=== PATIENT | female | born 1935 | race Caucasian/White ===

== ENCOUNTER 2017-09-24 14:01 | Inpatient (IN) | payer MEDICARE, MEDICAID ==
[~2017-09-24] VITALS: Ht 149.9 cm; Wt 80.0 kg
[~2017-09-24 14:01] MED LIST: HYDR25TA PO; NAPR500T7 PO; SIMV20TA6 PO
[2017-09-24] MEDS ORDERED: DILTIAZEM HCL 125 MG in DEXT 5% WATER 100 ML IV ONE (16:00)
[2017-09-24] MEDS ORDERED: DILTIAZEM HCL 5MG/ML 5ML VIAL IV ONE (16:00)
[2017-09-24 16:28] LABS: BASOPHILS % 0.6 % (0.0-2.0); EOSINOPHILS % 0.9 % (0.0-5.0); HEMATOCRIT. 37.6 % (36.0-48.0); HEMOGLOBIN. 12.6 g/dL (12.0-16.0); LYMPHOCYTES % 28.3 % (20.0-50.0); MEAN CORPUSCULAR VOLUME 89.6 fL (81.0-99.0); MONOCYTES % 9.7 % (2.0-8.0); NEUTROPHILS % 60.5 % (40.0-76.0); PLATELET 176 x1000/uL (130-400); RED BLOOD CELL COUNT 4.19 mill/uL (4.2-5.4); RED CELL DISTRIBUTION WIDTH 14.7 % (11.6-14.6)
[2017-09-24 16:30] LABS: INR 1.3; PARTIAL THROMBOPLASTIN TIME 25.5 sec (23.4-31.0)
[2017-09-24] MEDS ORDERED: DILTIAZEM HCL 125 MG in SODIUM CHLORIDE 0.9% 100 ML IV NR (16:30)
[2017-09-24 16:32] LABS: CHLORIDE 100 mEq/L (98-107)
[2017-09-25] VITALS (88 sets, daily range): BP systolic 53–150; BP diastolic 32–105
[2017-09-25] MEDS: IPRATROPIUM/ALBUTEROL 0.5-3(2.5)MG/3ML NEB HHN SCH ×2 (00:02→20:00)
[2017-09-25] MEDS ORDERED: ETOMIDATE 2MG/ML 10ML VIAL IV ONE (06:00)
[2017-09-25] MEDS ORDERED: SUCCINYLCHOLINE CHLORIDE 200MG/10ML VIAL IV ONE (06:00)
[2017-09-25] MEDS ORDERED: VECURONIUM BROMIDE 10 MG/VIAL IV ONE (06:00)
[2017-09-25] MEDS ORDERED: MIDAZOLAM HCL 2 MG/2 ML VIAL ONE (06:08)
[2017-09-25] MEDS ORDERED: AMIODARONE HCL 900 MG in DEXT 5% WATER 482 ML IV STA (06:16)
[2017-09-25] MEDS ORDERED: AMIODARONE HCL IV SCH (06:30)
[2017-09-25] MEDS ORDERED: AMIODARONE HCL 50MG/ML 3ML VIAL IV ONE (06:30)
[2017-09-25] MEDS ORDERED: MIDAZOLAM HCL 2 MG/2 ML VIAL IV ONE (06:30)
[2017-09-25] MEDS ORDERED: WATER IV SCH (06:30)
[2017-09-25] MEDS ORDERED: DEXTROSE 5% IV SCH (06:30)
[2017-09-25] MEDS ORDERED: AMIODARONE HCL 900 MG in DEXT 5% WATER 500 ML IV PRN (06:40)
[2017-09-25] MEDS: PROPOFOL 10MG/ML 100ML 100 ML IV PRN ×2 (07:49→14:05)
[2017-09-25 08:02] LABS: BG BASE EXCESS -10.2 mmol/L (-2.0-2.0); BG CARBOXYHEMOGLOBIN 0.3 % (0.5-1.5); BG DEOXYHEMOGLOBIN 0.8 % (0.0-5.0); BG FRACTION INSPIRED OXYGEN 100; BG HCO3 ACT 14.7 mmol/L (22.0-26.0); BG METHEMOGLOBIN 0.4 % (0.0-1.5); BG OXYGEN SATURATION 99.2 % (92.0-98.5); BG OXYHEMOGLOBIN 98.5 % (94.0-97.0); BG PH 7.309 (7.350-7.450); BG PO2 231.2 mmHg (75.0-100.0); BG SAMPLE SITE RIGHT BRACHIAL; BG TIDAL VOLUME(mL) 500 mL; BG TOTAL HEMOGLOBIN 13.3 g/dL (12.0-18.0); BG VENT MODE VENT - A/C; BG VENT RATE 12 set
[2017-09-25] MEDS ORDERED: LIDOCAINE HCL/PF 1% 10 MG/ML 5ML VIAL ONE (08:04)
[2017-09-25] MEDS ORDERED: FUROSEMIDE 40MG/4ML VIAL IVP SCH (08:45)
[2017-09-25] MEDS ORDERED: AMIODARONE HCL 100 MG in DEXT 5% WATER 100 ML IV SCH (09:00)
[2017-09-25] MEDS ORDERED: ENOXAPARIN 30MG/0.3ML SYR SUBCUT SCH (09:00)
[2017-09-25] MEDS ORDERED: ASPIRIN 81MG EC TABLET PO SCH (09:00)
[2017-09-25] MEDS ORDERED: SODIUM BICARBONATE 8.4% 1 MEQ/ML 50ML SYR IV SCH (09:15)
[2017-09-25] MEDS: AMIODARONE HCL 900 MG in DEXT 5% WATER 482 ML IV SCH (10:13)
[2017-09-25 10:25] LABS: CLARITY URINE TURBID (CLEAR); COLOR URINE YELLOW (YELLOW); KETONES URINE NEGATIVE (NEGATIVE); LEUKOCYTE ESTERASE URINE 2+ (NEGATIVE); NITRITE URINE POSITIVE (NEGATIVE); OCCULT BLOOD URINE 1+ (NEGATIVE); PROTEIN URINE 2+ (NEGATIVE); SPECIFIC GRAVITY URINE 1.016 (1.005-1.030); UROBILINOGEN URINE 0.2 E.U./dL (0.2-1.0)
[2017-09-25] MEDS ORDERED: PANTOPRAZOLE SODIUM 40 MG/VIAL IV NR (10:30)
[2017-09-25] MEDS: PHENYLEPHRINE 20 MG in DEXT 5% WATER 248 ML IV PRN ×2 (10:48→14:36)
[2017-09-25 12:00] LABS: BASOPHILS % 0.2 % (0.0-2.0); HEMOGLOBIN. 12.6 g/dL (12.0-16.0); LYMPHOCYTES % 10.8 % (20.0-50.0); MEAN CORPUSCULAR HEMOGLOBIN 29.5 pg (28.0-32.0); MEAN CORPUSCULAR VOLUME 88.8 fL (81.0-99.0); MEAN PLATELET VOLUME 11.1 fl (7.4-10.4); PLATELET 171 x1000/uL (130-400); RED BLOOD CELL COUNT 4.28 mill/uL (4.2-5.4); RED CELL DISTRIBUTION WIDTH 14.9 % (11.6-14.6)
[2017-09-25] MEDS ORDERED: IPRATROPIUM/ALBUTEROL 0.5-3(2.5)MG/3ML NEB HHN PRN (12:00)
[2017-09-25 12:40] LABS: CREATINE KINASE MB FRACTION 2.1 ng/mL (0.5-3.6); PHOSPHORUS 4.7 mg/dL (2.5-4.9)
[2017-09-25] MEDS ORDERED: LEVOFLOXACIN 500MG PREMIX 100 ML IV NR (13:30)
[2017-09-25] MEDS ORDERED: SODIUM CHLORIDE 0.9% 1000ML BAG (SEPSIS BOLUS) IV ONE (14:00)
[2017-09-25] MEDS ORDERED: SODIUM CHLORIDE 0.9% 500 ML IV NR (14:16)
[2017-09-25] MEDS ORDERED: SODIUM CHLORIDE 0.9% 1,000 ML IV SCH (14:30)
[2017-09-25] MEDS: FENTANYL CITRATE/PF 500 MCG in SODIUM CHLORIDE 0.9% 40 ML IV PRN ×2 (15:43→19:08)
[2017-09-25] MEDS: PHENYLEPHRINE 40 MG in DEXT 5% WATER 496 ML IV PRN (17:29)
[2017-09-25] MEDS ORDERED: DEXT 5%/0.45% NACL 1000ML 1,000 ML IV ONE (17:30)
[2017-09-25] MEDS ORDERED: LOSA50TA20 PO (17:55)
[2017-09-25] MEDS ORDERED: MEMA10TA19 PO (17:55)
[2017-09-25] MEDS: ACETAMINOPHEN 325MG TABLET PO PRN (18:10)
[2017-09-25 18:57] LABS: CREATINE KINASE MB FRACTION 1.5 ng/mL (0.5-3.6)
[2017-09-25] MEDS ORDERED: MIDAZOLAM HCL 100 MG in DEXT 5% WATER 80 ML IV PRN (19:00)
[2017-09-25] MEDS ORDERED: DEXTROSE 50% WATER 50ML SYRINGE IV PRN (19:45)
[2017-09-25] MEDS: CEFEPIME 1,000 MG in DEXTROSE 5% WATER 50 ML IV SCH (20:31)
[2017-09-25] MEDS ORDERED: VANCOMYCIN 1 G PREMIX 200 ML IV NR (21:00)
[2017-09-25] MEDS ORDERED: CEFEPIME 2,000 MG in DEXT 5% WATER 100 ML IV SCH (21:00)
[2017-09-25] MEDS: BLOOD SUGAR DIAGNOSTIC STRIP TEST SCH (21:00)
[2017-09-25] MEDS: INSULIN LISPRO 100 UNITS/ML SUBCUT SCH (21:14)
[2017-09-26] VITALS (97 sets, daily range): BP systolic 74–193; BP diastolic 40–145
[2017-09-26] MEDS: IPRATROPIUM/ALBUTEROL 0.5-3(2.5)MG/3ML NEB HHN SCH ×5 (00:35→20:10)
[2017-09-26] MEDS: PHENYLEPHRINE 40 MG in DEXT 5% WATER 496 ML IV PRN ×3 (01:07→17:58)
[2017-09-26 01:32] LABS: CREATINE KINASE MB FRACTION 68.6 ng/mL (0.5-3.6)
[2017-09-26] MEDS ORDERED: LORAZEPAM 2MG/ML CPJ IV PRN (06:30)
[2017-09-26 06:34] LABS: BASOPHILS % 0.4 % (0.0-2.0); EOSINOPHILS % 0.4 % (0.0-5.0); HEMATOCRIT. 41.4 % (36.0-48.0); HEMOGLOBIN. 13.6 g/dL (12.0-16.0); LYMPHOCYTES % 9.4 % (20.0-50.0); MEAN CORPUSCULAR HEMOGLOBIN 29.9 pg (28.0-32.0); MEAN CORPUSCULAR VOLUME 90.9 fL (81.0-99.0); MEAN PLATELET VOLUME 11.7 fl (7.4-10.4); MONOCYTES % 4.6 % (2.0-8.0); NEUTROPHILS % 85.2 % (40.0-76.0); PLATELET 124 x1000/uL (130-400); RED BLOOD CELL COUNT 4.55 mill/uL (4.2-5.4); RED CELL DISTRIBUTION WIDTH 14.9 % (11.6-14.6)
[2017-09-26] MEDS: FENTANYL CITRATE/PF 500 MCG in SODIUM CHLORIDE 0.9% 40 ML IV PRN ×2 (07:39→17:38)
[2017-09-26] MEDS: BLOOD SUGAR DIAGNOSTIC STRIP TEST SCH ×4 (08:07→17:51)
[2017-09-26] MEDS ORDERED: PROPOFOL 10MG/ML 100ML 100 ML IV PRN (08:15)
[2017-09-26] MEDS: INSULIN LISPRO 100 UNITS/ML SUBCUT SCH ×3 (08:34→17:51)
[2017-09-26] MEDS: PANTOPRAZOLE SODIUM 40 MG/VIAL IV SCH (08:35)
[2017-09-26] MEDS: ACETAMINOPHEN 325MG TABLET PO PRN (08:36)
[2017-09-26] MEDS ORDERED: PHENYTOIN SODIUM 300 MG in SODIUM CHLORIDE 0.9% 50 ML IV SCH (09:00)
[2017-09-26] MEDS ORDERED: LEVETIRACETAM 1000MG/100ML 100 ML IV NR (09:00)
[2017-09-26 09:13] LABS: BG CARBOXYHEMOGLOBIN 0.5 % (0.5-1.5); BG DEOXYHEMOGLOBIN 0.4 % (0.0-5.0); BG FRACTION INSPIRED OXYGEN 100; BG METHEMOGLOBIN 0.5 % (0.0-1.5); BG OXYGEN SATURATION 99.6 % (92.0-98.5); BG OXYHEMOGLOBIN 98.6 % (94.0-97.0); BG PCO2 25.2 mmHg (35.0-45.0); BG PH 7.392 (7.350-7.450); BG PO2 312.8 mmHg (75.0-100.0); BG SAMPLE SITE RIGHT BRACHIAL; BG TIDAL VOLUME(mL) 500 mL; BG TOTAL HEMOGLOBIN 14.2 g/dL (12.0-18.0); BG VENT MODE VENT - A/C; BG VENT RATE 16 set
[2017-09-26] MEDS ORDERED: PHENYTOIN SODIUM 1,000 MG in SODIUM CHLORIDE 0.9% 100 ML IV NR (10:00)
[2017-09-26] MEDS ORDERED: SODIUM BICARBONATE 150 MEQ in DEXTROSE 5% WATER 1,000 ML IV SCH (10:00)
[2017-09-26] MEDS ORDERED: FUROSEMIDE 40MG/4ML VIAL IVP NR (10:30)
[2017-09-26] MEDS: AMIODARONE HCL 900 MG in DEXT 5% WATER 482 ML IV SCH ×2 (10:32→17:37)
[2017-09-26] MEDS: CEFEPIME 1,000 MG in DEXTROSE 5% WATER 50 ML IV SCH (20:01)
[2017-09-26] MEDS ORDERED: LEVETIRACETAM 500MG PREMIX 100 ML IV SCH (21:00)
[2017-09-27] VITALS (101 sets, daily range): BP systolic 92–190; BP diastolic 34–122
[2017-09-27] MEDS: BLOOD SUGAR DIAGNOSTIC STRIP TEST SCH ×4 (00:39→18:35)
[2017-09-27] MEDS: IPRATROPIUM/ALBUTEROL 0.5-3(2.5)MG/3ML NEB HHN SCH ×4 (01:30→20:21)
[2017-09-27] MEDS: LORAZEPAM 2MG/ML CPJ IV PRN ×2 (04:33→10:48)
[2017-09-27 05:53] LABS: BASOPHILS % 0.7 % (0.0-2.0); EOSINOPHILS % 1.5 % (0.0-5.0); HEMATOCRIT. 38.3 % (36.0-48.0); LYMPHOCYTES % 8.1 % (20.0-50.0); MEAN CORPUSCULAR HEMOGLOBIN 30.5 pg (28.0-32.0); MEAN CORPUSCULAR VOLUME 89.5 fL (81.0-99.0); MEAN PLATELET VOLUME 12.7 fl (7.4-10.4); MONOCYTES % 3.1 % (2.0-8.0); NEUTROPHILS % 86.6 % (40.0-76.0); PLATELET 118 x1000/uL (130-400); RED BLOOD CELL COUNT 4.28 mill/uL (4.2-5.4)
[2017-09-27 06:17] LABS: CHLORIDE 87 mEq/L (98-107)
[2017-09-27 06:59] LABS: CREATINE KINASE 1890 IU/L (26-192)
[2017-09-27 08:15] LABS: SODIUM URINE RANDOM 89 mEq/L
[2017-09-27] MEDS ORDERED: LEVOFLOXACIN 500MG PREMIX 100 ML IV SCH (08:30)
[2017-09-27] MEDS: LEVETIRACETAM 500MG/5ML CUP NG SCH ×2 (08:57→20:54)
[2017-09-27] MEDS: PANTOPRAZOLE SODIUM 40 MG/VIAL IV SCH (08:57)
[2017-09-27] MEDS: INSULIN LISPRO 100 UNITS/ML SUBCUT SCH ×4 (08:58→17:26)
[2017-09-27] MEDS ORDERED: SODIUM BICARBONATE 8.4% 1 MEQ/ML 50ML SYR IV SCH (09:00)
[2017-09-27] MEDS ORDERED: PHENYTOIN SODIUM 300 MG in SODIUM CHLORIDE 0.9% 50 ML IV SCH (09:00)
[2017-09-27 11:46] LABS: INR 2.8; PARTIAL THROMBOPLASTIN TIME 37.6 sec (23.4-31.0); PROTHROMBIN TIME 28.8 sec (9.4-11.6)
[2017-09-27 12:29] LABS: HEPATITIS B SURFACE ANTIGEN NEGATIVE
[2017-09-27 12:57] LABS: HEPATITIS B CORE AB IGM NEGATIVE
[2017-09-27 12:59] LABS: HEPATITIS A AB IGM NEGATIVE (NEGATIVE)
[2017-09-27] MEDS ORDERED: LEVOFLOXACIN 250MG PREMIX 50 ML IV SCH (13:00)
[2017-09-27] MEDS ORDERED: DEXTROSE 50% WATER 50ML SYRINGE IV PRN ×2 (13:45)
[2017-09-27] MEDS: LEVOFLOXACIN 250MG PREMIX 50 ML IV SCH (14:10)
[2017-09-27] MEDS ORDERED: PHENYLEPHRINE 40 MG in SODIUM CHLORIDE 0.9% 496 ML IV PRN (15:30)
[2017-09-27] MEDS ORDERED: BLOOD SUGAR DIAGNOSTIC STRIP TEST SCH ×2 (17:50)
[2017-09-27] MEDS ORDERED: INSULIN LISPRO 100 UNITS/ML SUBCUT SCH ×2 (18:20)
[2017-09-27] MEDS: PHENYTOIN 100 MG/4 ML UDC NG SCH (20:54)
[2017-09-28] VITALS (63 sets, daily range): BP systolic 115–169; BP diastolic 54–102
[2017-09-28] MEDS: BLOOD SUGAR DIAGNOSTIC STRIP TEST SCH ×4 (00:12→18:54)
[2017-09-28] MEDS: IPRATROPIUM/ALBUTEROL 0.5-3(2.5)MG/3ML NEB HHN SCH ×4 (04:23→19:58)
[2017-09-28] MEDS: INSULIN LISPRO 100 UNITS/ML SUBCUT SCH ×4 (06:00→18:00)
[2017-09-28 06:11] LABS: HEMATOCRIT. 38.5 % (36.0-48.0); HEMOGLOBIN. 12.8 g/dL (12.0-16.0); MEAN CORPUSCULAR HEMOGLOBIN 29.2 pg (28.0-32.0); MEAN CORPUSCULAR VOLUME 87.9 fL (81.0-99.0); MEAN PLATELET VOLUME 11.5 fl (7.4-10.4); PLATELET 88 x1000/uL (130-400); RED BLOOD CELL COUNT 4.38 mill/uL (4.2-5.4); RED CELL DISTRIBUTION WIDTH 14.6 % (11.6-14.6)
[2017-09-28 06:22] LABS: CHLORIDE 91 mEq/L (98-107)
[2017-09-28 06:46] LABS: PHOSPHORUS 6.8 mg/dL (2.5-4.9)
[2017-09-28 07:50] LABS: NUCLEATED RED BLOOD CELLS 2 /100 WBC
[2017-09-28 07:51] LABS: PLATELET ESTIMATE SLIGHTLY DECREASED
[2017-09-28 08:45] LABS: CREATINE KINASE 2379 IU/L (26-192)
[2017-09-28] MEDS: PANTOPRAZOLE SODIUM 40 MG/VIAL IV SCH (09:13)
[2017-09-28] MEDS: LEVETIRACETAM 500MG/5ML CUP NG SCH ×2 (09:14→21:16)
[2017-09-28 09:20] LABS: BG BASE EXCESS -4.7 mmol/L (-2.0-2.0); BG CARBOXYHEMOGLOBIN 0.8 % (0.5-1.5); BG DEOXYHEMOGLOBIN 3.9 % (0.0-5.0); BG FRACTION INSPIRED OXYGEN 40; BG METHEMOGLOBIN 0.3 % (0.0-1.5); BG OXYGEN SATURATION 96.1 % (92.0-98.5); BG PCO2 23.3 mmHg (35.0-45.0); BG PO2 84.9 mmHg (75.0-100.0); BG SAMPLE SITE RIGHT BRACHIAL; BG TIDAL VOLUME(mL) 500 mL; BG TOTAL HEMOGLOBIN 13.1 g/dL (12.0-18.0); BG VENT MODE VENT - A/C; BG VENT RATE 16 set
[2017-09-28] MEDS: METOCLOPRAMIDE 10MG/10 ML UDC NG SCH ×2 (14:50→18:00)
[2017-09-28] MEDS: PHENYTOIN 100 MG/4 ML UDC NG SCH (21:16)
[2017-09-29] VITALS (40 sets, daily range): BP systolic 96–176; BP diastolic 36–97
[2017-09-29] MEDS: IPRATROPIUM/ALBUTEROL 0.5-3(2.5)MG/3ML NEB HHN SCH ×4 (02:23→20:49)
[2017-09-29] MEDS: METOCLOPRAMIDE 10MG/10 ML UDC NG SCH ×4 (02:31→17:35)
[2017-09-29] MEDS: HYDRALAZINE 20MG/ML VIAL IV PRN (03:09)
[2017-09-29 05:21] LABS: HEMATOCRIT. 38.9 % (36.0-48.0); HEMOGLOBIN. 12.9 g/dL (12.0-16.0); MEAN CORPUSCULAR HEMOGLOBIN 29.2 pg (28.0-32.0); MEAN CORPUSCULAR VOLUME 87.7 fL (81.0-99.0); MEAN PLATELET VOLUME 11.2 fl (7.4-10.4); PLATELET 106 x1000/uL (130-400); RED BLOOD CELL COUNT 4.43 mill/uL (4.2-5.4); RED CELL DISTRIBUTION WIDTH 14.7 % (11.6-14.6)
[2017-09-29 05:44] LABS: CHLORIDE 96 mEq/L (98-107)
[2017-09-29] MEDS: INSULIN LISPRO 100 UNITS/ML SUBCUT SCH ×4 (06:00→17:35)
[2017-09-29 07:22] LABS: BG BASE EXCESS -1.4 mmol/L (-2.0-2.0); BG CARBOXYHEMOGLOBIN 0.6 % (0.5-1.5); BG HCO3 ACT 19.5 mmol/L (22.0-26.0); BG METHEMOGLOBIN 0.3 % (0.0-1.5); BG OXYHEMOGLOBIN 94.1 % (94.0-97.0); BG PCO2 23.9 mmHg (35.0-45.0); BG PH 7.529 (7.350-7.450); BG PO2 73.9 mmHg (75.0-100.0); BG SAMPLE SITE RIGHT RADIAL; BG TIDAL VOLUME(mL) 450 mL; BG TOTAL HEMOGLOBIN 13.9 g/dL (12.0-18.0); BG VENT MODE VENT - A/C; BG VENT RATE 12 set
[2017-09-29 08:08] LABS: NUCLEATED RED BLOOD CELLS 1 /100 WBC; PLATELET ESTIMATE SLIGHTLY DECREASED
[2017-09-29] MEDS: BLOOD SUGAR DIAGNOSTIC STRIP TEST SCH ×4 (09:00→17:35)
[2017-09-29] MEDS: PANTOPRAZOLE SODIUM 40 MG/VIAL IV SCH (09:46)
[2017-09-29] MEDS: LEVETIRACETAM 500MG/5ML CUP NG SCH ×2 (09:46→21:47)
[2017-09-29] MEDS: LEVOFLOXACIN 250MG PREMIX 50 ML IV SCH (12:38)
[2017-09-29 15:42] LABS: CREATINE KINASE 1281 IU/L (26-192)
[2017-09-29] MEDS: PHENYTOIN 100 MG/4 ML UDC NG SCH (21:47)
[2017-09-30] VITALS (35 sets, daily range): BP systolic 114–168; BP diastolic 59–98
[2017-09-30] MEDS: METOCLOPRAMIDE 10MG/10 ML UDC NG SCH ×4 (00:10→18:57)
[2017-09-30] MEDS: INSULIN LISPRO 100 UNITS/ML SUBCUT SCH ×4 (00:11→18:00)
[2017-09-30] MEDS: BLOOD SUGAR DIAGNOSTIC STRIP TEST SCH ×4 (00:11→18:58)
[2017-09-30] MEDS: IPRATROPIUM/ALBUTEROL 0.5-3(2.5)MG/3ML NEB HHN SCH ×4 (03:16→19:56)
[2017-09-30 05:06] LABS: HEMATOCRIT. 38.3 % (36.0-48.0); HEMOGLOBIN. 12.9 g/dL (12.0-16.0); MEAN CORPUSCULAR HEMOGLOBIN 29.5 pg (28.0-32.0); MEAN CORPUSCULAR VOLUME 87.7 fL (81.0-99.0); MEAN PLATELET VOLUME 10.2 fl (7.4-10.4); PLATELET 83 x1000/uL (130-400); RED BLOOD CELL COUNT 4.37 mill/uL (4.2-5.4)
[2017-09-30 05:07] LABS: CHLORIDE 95 mEq/L (98-107)
[2017-09-30 05:17] LABS: PHOSPHORUS 5.1 mg/dL (2.5-4.9)
[2017-09-30 07:20] LABS: NUCLEATED RED BLOOD CELLS 1 /100 WBC; PLATELET ESTIMATE DECREASED
[2017-09-30 08:47] LABS: BG BASE EXCESS -0.3 mmol/L (-2.0-2.0); BG CARBOXYHEMOGLOBIN 0.1 % (0.5-1.5); BG DEOXYHEMOGLOBIN 2.9 % (0.0-5.0); BG FRACTION INSPIRED OXYGEN 50; BG HCO3 ACT 21.3 mmol/L (22.0-26.0); BG METHEMOGLOBIN 0.5 % (0.0-1.5); BG OXYGEN SATURATION 97.1 % (92.0-98.5); BG OXYHEMOGLOBIN 96.5 % (94.0-97.0); BG PCO2 27.3 mmHg (35.0-45.0); BG PH 7.511 (7.350-7.450); BG PRESSURE SUPPORT 16; BG SAMPLE SITE RIGHT RADIAL; BG TIDAL VOLUME(mL) 500 mL; BG TOTAL HEMOGLOBIN 14.1 g/dL (12.0-18.0); BG VENT MODE VENT - SIMV; BG VENT RATE 12 set
[2017-09-30] MEDS: PANTOPRAZOLE SODIUM 40 MG/VIAL IV SCH (09:53)
[2017-09-30] MEDS: LEVETIRACETAM 500MG/5ML CUP NG SCH ×2 (09:53→21:08)
[2017-09-30] MEDS: PHENYTOIN 100 MG/4 ML UDC NG SCH (21:08)
[2017-09-30] MEDS: SILVER SULFADIAZINE 1% CREAM 25GM TOP SCH (21:08)
[2017-10-01] VITALS (37 sets, daily range): BP systolic 94–153; BP diastolic 47–75
[2017-10-01] MEDS: INSULIN LISPRO 100 UNITS/ML SUBCUT SCH ×4 (00:28→18:00)
[2017-10-01] MEDS: BLOOD SUGAR DIAGNOSTIC STRIP TEST SCH ×4 (00:28→18:59)
[2017-10-01] MEDS: METOCLOPRAMIDE 10MG/10 ML UDC NG SCH ×4 (00:28→18:59)
[2017-10-01] MEDS: IPRATROPIUM/ALBUTEROL 0.5-3(2.5)MG/3ML NEB HHN SCH ×4 (02:00→20:16)
[2017-10-01 05:41] LABS: HEMOGLOBIN. 13.4 g/dL (12.0-16.0); LYMPHOCYTES % 8.8 % (20.0-50.0); MEAN CORPUSCULAR HEMOGLOBIN 29.7 pg (28.0-32.0); MEAN CORPUSCULAR VOLUME 88.3 fL (81.0-99.0); MEAN PLATELET VOLUME 11.1 fl (7.4-10.4); MONOCYTES % 4.7 % (2.0-8.0); NEUTROPHILS % 86.5 % (40.0-76.0); PLATELET 77 x1000/uL (130-400); RED BLOOD CELL COUNT 4.53 mill/uL (4.2-5.4)
[2017-10-01 05:53] LABS: CHLORIDE 97 mEq/L (98-107)
[2017-10-01 06:12] LABS: PHOSPHORUS 4.6 mg/dL (2.5-4.9)
[2017-10-01] MEDS ORDERED: SILVER SULFADIAZINE 1% CREAM 50GM TOP SCH (09:00)
[2017-10-01 10:22] LABS: BG BASE EXCESS -0.1 mmol/L (-2.0-2.0); BG DEOXYHEMOGLOBIN 3.9 % (0.0-5.0); BG FRACTION INSPIRED OXYGEN 40; BG METHEMOGLOBIN 0.6 % (0.0-1.5); BG OXYHEMOGLOBIN 94.5 % (94.0-97.0); BG PH 7.498 (7.350-7.450); BG PO2 79.7 mmHg (75.0-100.0); BG SAMPLE SITE RIGHT RADIAL; BG TIDAL VOLUME(mL) 500 mL; BG TOTAL HEMOGLOBIN 13.9 g/dL (12.0-18.0); BG VENT MODE VENT - A/C; BG VENT RATE 12 set
[2017-10-01] MEDS ORDERED: LACTULOSE 20G/30ML UDC PO NR (11:30)
[2017-10-01] MEDS: PANTOPRAZOLE SODIUM 40 MG/VIAL IV SCH (11:37)
[2017-10-01] MEDS: LEVETIRACETAM 500MG/5ML CUP NG SCH ×2 (11:37→21:17)
[2017-10-01] MEDS: SILVER SULFADIAZINE 1% CREAM 25GM TOP SCH ×2 (11:38→21:18)
[2017-10-01] MEDS: LEVOFLOXACIN 250MG PREMIX 50 ML IV SCH (13:21)
[2017-10-01] MEDS ORDERED: POTASSIUM CHLORIDE INJ 40 MEQ in DEXT 5% WATER 250 ML IV NR (13:30)
[2017-10-01] MEDS: SODIUM CHLORIDE 0.9% 1,000 ML IV SCH (14:30)
[2017-10-01] MEDS: PHENYTOIN 100 MG/4 ML UDC NG SCH (21:17)
[2017-10-02] VITALS (37 sets, daily range): BP systolic 121–181; BP diastolic 48–99
[2017-10-02] MEDS: METOCLOPRAMIDE 10MG/10 ML UDC NG SCH ×4 (00:26→18:33)
[2017-10-02] MEDS: SODIUM CHLORIDE 0.9% 1,000 ML IV SCH ×2 (00:27→10:30)
[2017-10-02] MEDS: BLOOD SUGAR DIAGNOSTIC STRIP TEST SCH ×5 (00:27→23:44)
[2017-10-02] MEDS: IPRATROPIUM/ALBUTEROL 0.5-3(2.5)MG/3ML NEB HHN SCH ×4 (02:13→19:51)
[2017-10-02 06:29] LABS: BASOPHILS % 0.1 % (0.0-2.0); EOSINOPHILS % 0.3 % (0.0-5.0); HEMATOCRIT. 39.1 % (36.0-48.0); LYMPHOCYTES % 10.4 % (20.0-50.0); MEAN CORPUSCULAR HEMOGLOBIN 29.5 pg (28.0-32.0); MEAN CORPUSCULAR VOLUME 88.9 fL (81.0-99.0); MEAN PLATELET VOLUME 9.4 fl (7.4-10.4); MONOCYTES % 6.2 % (2.0-8.0); PLATELET 63 x1000/uL (130-400); RED BLOOD CELL COUNT 4.39 mill/uL (4.2-5.4); RED CELL DISTRIBUTION WIDTH 15.4 % (11.6-14.6)
[2017-10-02 06:37] LABS: INR 1.4; PARTIAL THROMBOPLASTIN TIME 32.2 sec (23.4-31.0); PROTHROMBIN TIME 15.1 sec (9.4-11.6)
[2017-10-02] MEDS: INSULIN LISPRO 100 UNITS/ML SUBCUT SCH ×5 (06:40→23:45)
[2017-10-02 07:25] LABS: PHOSPHORUS 3.7 mg/dL (2.5-4.9); PREALBUMIN 7.4 mg/dL (20.0-40.0)
[2017-10-02] MEDS: LEVETIRACETAM 500MG/5ML CUP NG SCH ×2 (10:18→21:22)
[2017-10-02] MEDS: PANTOPRAZOLE SODIUM 40 MG/VIAL IV SCH (10:18)
[2017-10-02] MEDS: SILVER SULFADIAZINE 1% CREAM 25GM TOP SCH ×2 (10:19→21:23)
[2017-10-02] MEDS ORDERED: KCL 20MEQ/100ML PREMIX 100 ML IV NR (18:00)
[2017-10-02] MEDS: PHENYTOIN 100 MG/4 ML UDC NG SCH (21:22)
[2017-10-02] MEDS: HYDRALAZINE 20MG/ML VIAL IV PRN (21:34)
[2017-10-03] VITALS (48 sets, daily range): BP systolic 109–181; BP diastolic 51–112
[2017-10-03] MEDS: METOCLOPRAMIDE 10MG/10 ML UDC NG SCH ×4 (00:38→18:00)
[2017-10-03] MEDS: SODIUM CHLORIDE 0.9% 1,000 ML IV SCH (00:39)
[2017-10-03] MEDS: IPRATROPIUM/ALBUTEROL 0.5-3(2.5)MG/3ML NEB HHN SCH ×4 (01:31→21:06)
[2017-10-03] MEDS: ACETAMINOPHEN 325MG TABLET PO PRN (04:07)
[2017-10-03 05:41] LABS: HEMATOCRIT. 35.5 % (36.0-48.0); HEMOGLOBIN. 12.2 g/dL (12.0-16.0); MEAN CORPUSCULAR HEMOGLOBIN 30.7 pg (28.0-32.0); MEAN CORPUSCULAR VOLUME 89.2 fL (81.0-99.0); MEAN PLATELET VOLUME 9.6 fl (7.4-10.4); PLATELET 54 x1000/uL (130-400); RED BLOOD CELL COUNT 3.98 mill/uL (4.2-5.4); RED CELL DISTRIBUTION WIDTH 15.2 % (11.6-14.6)
[2017-10-03 05:57] LABS: INR 1.5; PARTIAL THROMBOPLASTIN TIME 31.1 sec (23.4-31.0); PROTHROMBIN TIME 15.4 sec (9.4-11.6)
[2017-10-03] MEDS: BLOOD SUGAR DIAGNOSTIC STRIP TEST SCH ×3 (05:58→18:43)
[2017-10-03] MEDS: INSULIN LISPRO 100 UNITS/ML SUBCUT SCH ×3 (05:58→18:00)
[2017-10-03] MEDS ORDERED: CEFAZOLIN 1000MG PREMIX 50 ML IV PRN (06:00)
[2017-10-03 06:11] LABS: PHOSPHORUS 2.5 mg/dL (2.5-4.9)
[2017-10-03 08:48] LABS: PLATELET ESTIMATE DECREASED
[2017-10-03] MEDS: LEVETIRACETAM 500MG/5ML CUP NG SCH ×2 (09:00→20:53)
[2017-10-03] MEDS: NYSTATIN 100,000 UNITS/GM OINT 15GM TOP SCH ×2 (09:43→20:53)
[2017-10-03] MEDS: SILVER SULFADIAZINE 1% CREAM 25GM TOP SCH ×2 (09:43→20:53)
[2017-10-03] MEDS: PANTOPRAZOLE SODIUM 40 MG/VIAL IV SCH (09:46)
[2017-10-03] MEDS ORDERED: POTASSIUM CHLORIDE INJ 40 MEQ in SODIUM CHLORIDE 0.9% 250 ML IV SCH (11:00)
[2017-10-03] MEDS ORDERED: MAGNESIUM 2 G PREMIX 50 ML IV SCH (11:00)
[2017-10-03] MEDS ORDERED: MIDAZOLAM HCL 2 MG/2 ML VIAL IV PRN (11:10)
[2017-10-03] MEDS: SODIUM CHL 0.45% + KCL 20MEQ/L 1,000 ML IV SCH (11:53)
[2017-10-03] MEDS: LEVOFLOXACIN 250MG PREMIX 50 ML IV SCH (13:45)
[2017-10-03 14:57] LABS: BASOPHILS % 0.2 % (0.0-2.0); EOSINOPHILS % 0.4 % (0.0-5.0); HEMATOCRIT. 36.4 % (36.0-48.0); HEMOGLOBIN. 12.5 g/dL (12.0-16.0); LYMPHOCYTES % 7.5 % (20.0-50.0); MEAN CORPUSCULAR HEMOGLOBIN 30.2 pg (28.0-32.0); MEAN CORPUSCULAR VOLUME 88.2 fL (81.0-99.0); MEAN PLATELET VOLUME 9.7 fl (7.4-10.4); MONOCYTES % 4.4 % (2.0-8.0); NEUTROPHILS % 87.5 % (40.0-76.0); PLATELET 52 x1000/uL (130-400); RED BLOOD CELL COUNT 4.12 mill/uL (4.2-5.4); RED CELL DISTRIBUTION WIDTH 15.4 % (11.6-14.6)
[2017-10-03 15:06] LABS: INR 1.5; PARTIAL THROMBOPLASTIN TIME 30.6 sec (23.4-31.0); PROTHROMBIN TIME 15.4 sec (9.4-11.6)
[2017-10-03] MEDS ORDERED: BACTERIOSTATIC SODIUM CHLORIDE 0.9% 30ML VIAL IJ ONE (16:09)
[2017-10-03] MEDS ORDERED: ROCURONIUM BROMIDE 10MG/ML VIAL 5ML IV ONE (20:01)
[2017-10-03] MEDS: PHENYTOIN 100 MG/4 ML UDC NG SCH (20:52)
[2017-10-03] MEDS: HYDRALAZINE 20MG/ML VIAL IV PRN (20:53)
[2017-10-04] VITALS (25 sets, daily range): BP systolic 108–153; BP diastolic 48–110
[2017-10-04] MEDS: MORPHINE SULFATE 4 MG/ML CPJ (NOT FOR IM USE) IV PRN (00:04)
[2017-10-04] MEDS: IPRATROPIUM/ALBUTEROL 0.5-3(2.5)MG/3ML NEB HHN SCH ×4 (00:18→20:05)
[2017-10-04] MEDS: SODIUM CHL 0.45% + KCL 20MEQ/L 1,000 ML IV SCH ×3 (00:20→12:29)
[2017-10-04] MEDS: METOCLOPRAMIDE 10MG/10 ML UDC NG SCH ×4 (00:20→18:48)
[2017-10-04] MEDS: INSULIN LISPRO 100 UNITS/ML SUBCUT SCH ×4 (00:22→18:00)
[2017-10-04] MEDS: BLOOD SUGAR DIAGNOSTIC STRIP TEST SCH ×4 (00:45→18:52)
[2017-10-04 05:37] LABS: HEMATOCRIT. 32.7 % (36.0-48.0); HEMOGLOBIN. 10.9 g/dL (12.0-16.0); MEAN CORPUSCULAR HEMOGLOBIN 29.8 pg (28.0-32.0); MEAN CORPUSCULAR VOLUME 88.9 fL (81.0-99.0); PLATELET 108 x1000/uL (130-400); RED BLOOD CELL COUNT 3.67 mill/uL (4.2-5.4); RED CELL DISTRIBUTION WIDTH 15.5 % (11.6-14.6)
[2017-10-04 05:59] LABS: CHLORIDE 115 mEq/L (98-107)
[2017-10-04 06:13] LABS: PHOSPHORUS 2.1 mg/dL (2.5-4.9)
[2017-10-04 08:40] LABS: ATYPICAL LYMPHOCYTES 1
[2017-10-04 08:41] LABS: PLATELET ESTIMATE SLIGHTLY DECREASED
[2017-10-04] MEDS: DEXTROSE 5% WATER 1,000 ML IV SCH (08:45)
[2017-10-04] MEDS ORDERED: MAGNESIUM 4 G PREMIX 100 ML IV NR (09:30)
[2017-10-04] MEDS ORDERED: POTASSIUM PHOS,M-BASIC-D-BASIC 15 MMOL in SODIUM CHLORIDE 0.9% 245 ML IV NR (10:00)
[2017-10-04] MEDS: PANTOPRAZOLE SODIUM 40 MG/VIAL IV SCH (10:04)
[2017-10-04] MEDS: SILVER SULFADIAZINE 1% CREAM 25GM TOP SCH ×2 (10:05→20:19)
[2017-10-04] MEDS: NYSTATIN 100,000 UNITS/GM OINT 15GM TOP SCH ×2 (10:05→20:19)
[2017-10-04] MEDS: LEVETIRACETAM 500MG/5ML CUP NG SCH ×2 (10:05→20:18)
[2017-10-04] MEDS: POTASSIUM CHLORIDE 20MEQ/PACKET GT SCH (10:05)
[2017-10-04 10:41] LABS: BG BASE EXCESS 3.6 mmol/L (-2.0-2.0); BG CARBOXYHEMOGLOBIN 0.2 % (0.5-1.5); BG DEOXYHEMOGLOBIN 1.9 % (0.0-5.0); BG FRACTION INSPIRED OXYGEN 40; BG HCO3 ACT 27.5 mmol/L (22.0-26.0); BG METHEMOGLOBIN 0.4 % (0.0-1.5); BG OXYGEN SATURATION 98.1 % (92.0-98.5); BG OXYHEMOGLOBIN 97.5 % (94.0-97.0); BG PCO2 38.9 mmHg (35.0-45.0); BG PH 7.467 (7.350-7.450); BG PO2 118.9 mmHg (75.0-100.0); BG SAMPLE SITE RIGHT RADIAL; BG TIDAL VOLUME(mL) 500 mL; BG TOTAL HEMOGLOBIN 11.5 g/dL (12.0-18.0); BG VENT MODE VENT - SIMV; BG VENT RATE 10 set
[2017-10-04] MEDS ORDERED: POTASSIUM CHLORIDE INJ 40 MEQ in SODIUM CHLORIDE 0.9% 250 ML IV NR (14:00)
[2017-10-04] MEDS: PHENYTOIN 100 MG/4 ML UDC NG SCH (20:18)
[2017-10-05] VITALS (46 sets, daily range): BP systolic 111–174; BP diastolic 50–92
[2017-10-05] MEDS: METOCLOPRAMIDE 10MG/10 ML UDC NG SCH ×4 (00:24→21:27)
[2017-10-05] MEDS: SODIUM CHL 0.45% + KCL 20MEQ/L 1,000 ML IV SCH (00:24)
[2017-10-05] MEDS: INSULIN LISPRO 100 UNITS/ML SUBCUT SCH ×3 (00:25→12:35)
[2017-10-05] MEDS: IPRATROPIUM/ALBUTEROL 0.5-3(2.5)MG/3ML NEB HHN SCH ×4 (02:18→20:12)
[2017-10-05] MEDS: MORPHINE SULFATE 4 MG/ML CPJ (NOT FOR IM USE) IV PRN ×3 (03:04→21:28)
[2017-10-05] MEDS: DEXTROSE 5% WATER 1,000 ML IV SCH ×2 (04:45→10:03)
[2017-10-05 05:54] LABS: HEMATOCRIT. 34.9 % (36.0-48.0); HEMOGLOBIN. 11.9 g/dL (12.0-16.0); MEAN CORPUSCULAR HEMOGLOBIN 30.7 pg (28.0-32.0); MEAN CORPUSCULAR VOLUME 89.8 fL (81.0-99.0); MEAN PLATELET VOLUME 9.5 fl (7.4-10.4); PLATELET 98 x1000/uL (130-400); RED BLOOD CELL COUNT 3.89 mill/uL (4.2-5.4)
[2017-10-05] MEDS: BLOOD SUGAR DIAGNOSTIC STRIP TEST SCH ×4 (06:31→17:20)
[2017-10-05 06:48] LABS: PHOSPHORUS 2.1 mg/dL (2.5-4.9)
[2017-10-05 07:46] LABS: PLATELET ESTIMATE DECREASED
[2017-10-05] MEDS: PANTOPRAZOLE SODIUM 40 MG/VIAL IV SCH (08:57)
[2017-10-05] MEDS: LEVETIRACETAM 500MG/5ML CUP NG SCH ×2 (08:58→21:32)
[2017-10-05] MEDS: NYSTATIN 100,000 UNITS/GM OINT 15GM TOP SCH ×2 (08:58→21:39)
[2017-10-05] MEDS: SILVER SULFADIAZINE 1% CREAM 25GM TOP SCH ×2 (08:58→21:39)
[2017-10-05] MEDS: POTASSIUM CHLORIDE 20MEQ/PACKET GT SCH (08:58)
[2017-10-05] MEDS ORDERED: POTASSIUM PHOS,M-BASIC-D-BASIC 30 MMOL in DEXT 5% WATER 500 ML IV SCH (09:00)
[2017-10-05] MEDS: ACETAMINOPHEN 325MG TABLET PO PRN (21:32)
[2017-10-05] MEDS: PHENYTOIN 100 MG/4 ML UDC NG SCH (21:44)
[2017-10-06] VITALS (36 sets, daily range): BP systolic 139–166; BP diastolic 60–120
[2017-10-06] MEDS: ACETYLCYSTEINE 100MG/ML 10% VIAL 4ML INH SCH (00:21)
[2017-10-06] MEDS: METOCLOPRAMIDE 10MG/10 ML UDC NG SCH ×4 (01:08→17:47)
[2017-10-06] MEDS: INSULIN LISPRO 100 UNITS/ML SUBCUT SCH ×4 (01:09→17:44)
[2017-10-06] MEDS: IPRATROPIUM/ALBUTEROL 0.5-3(2.5)MG/3ML NEB HHN SCH ×5 (01:44→20:15)
[2017-10-06] MEDS: MORPHINE SULFATE 4 MG/ML CPJ (NOT FOR IM USE) IV PRN ×2 (04:55→21:17)
[2017-10-06 05:36] LABS: BASOPHILS % 0.2 % (0.0-2.0); EOSINOPHILS % 0.9 % (0.0-5.0); HEMATOCRIT. 32.7 % (36.0-48.0); HEMOGLOBIN. 10.9 g/dL (12.0-16.0); LYMPHOCYTES % 7.2 % (20.0-50.0); MEAN CORPUSCULAR HEMOGLOBIN 30.1 pg (28.0-32.0); MEAN CORPUSCULAR VOLUME 90.3 fL (81.0-99.0); MEAN PLATELET VOLUME 9.8 fl (7.4-10.4); MONOCYTES % 4.3 % (2.0-8.0); NEUTROPHILS % 87.4 % (40.0-76.0); PLATELET 98 x1000/uL (130-400); RED BLOOD CELL COUNT 3.62 mill/uL (4.2-5.4); RED CELL DISTRIBUTION WIDTH 15.8 % (11.6-14.6)
[2017-10-06] MEDS: BLOOD SUGAR DIAGNOSTIC STRIP TEST SCH ×4 (06:00→17:45)
[2017-10-06 06:04] LABS: PHOSPHORUS 2.5 mg/dL (2.5-4.9)
[2017-10-06 08:34] LABS: BG BASE EXCESS 3.6 mmol/L (-2.0-2.0); BG CARBOXYHEMOGLOBIN 0.3 % (0.5-1.5); BG DEOXYHEMOGLOBIN 2.2 % (0.0-5.0); BG FRACTION INSPIRED OXYGEN 40; BG HCO3 ACT 27.2 mmol/L (22.0-26.0); BG METHEMOGLOBIN 0.3 % (0.0-1.5); BG OXYGEN SATURATION 97.8 % (92.0-98.5); BG OXYHEMOGLOBIN 97.2 % (94.0-97.0); BG PCO2 37.3 mmHg (35.0-45.0); BG PO2 103.3 mmHg (75.0-100.0); BG PRESSURE SUPPORT 8; BG SAMPLE SITE RIGHT RADIAL; BG TIDAL VOLUME(mL) 500 mL; BG TOTAL HEMOGLOBIN 11.5 g/dL (12.0-18.0); BG VENT MODE VENT - SIMV; BG VENT RATE 10 set
[2017-10-06] MEDS: PANTOPRAZOLE SODIUM 40 MG/VIAL IV SCH (08:45)
[2017-10-06] MEDS: POTASSIUM CHLORIDE 20MEQ/PACKET GT SCH (08:45)
[2017-10-06] MEDS: LEVETIRACETAM 500MG/5ML CUP NG SCH ×2 (08:46→21:21)
[2017-10-06] MEDS: SILVER SULFADIAZINE 1% CREAM 25GM TOP SCH ×2 (08:50→21:22)
[2017-10-06] MEDS: NYSTATIN 100,000 UNITS/GM OINT 15GM TOP SCH ×2 (08:51→21:22)
[2017-10-06] MEDS ORDERED: MAGNESIUM 2 G PREMIX 50 ML IV NR (12:00)
[2017-10-06] MEDS: DEXTROSE 5% WATER 1,000 ML IV SCH ×2 (12:29→18:17)
[2017-10-06 15:56] LABS: BG BASE EXCESS 2.1 mmol/L (-2.0-2.0); BG CARBOXYHEMOGLOBIN 0.2 % (0.5-1.5); BG DEOXYHEMOGLOBIN 1.9 % (0.0-5.0); BG FRACTION INSPIRED OXYGEN 40; BG HCO3 ACT 25.9 mmol/L (22.0-26.0); BG METHEMOGLOBIN 0.3 % (0.0-1.5); BG OXYGEN SATURATION 98.1 % (92.0-98.5); BG OXYHEMOGLOBIN 97.6 % (94.0-97.0); BG PCO2 37.3 mmHg (35.0-45.0); BG PH 7.459 (7.350-7.450); BG PRESSURE SUPPORT 8; BG SAMPLE SITE RIGHT RADIAL; BG TIDAL VOLUME(mL) 500 mL; BG TOTAL HEMOGLOBIN 12.4 g/dL (12.0-18.0); BG VENT MODE VENT - SIMV; BG VENT RATE 8 set
[2017-10-06 20:01] LABS: BG BASE EXCESS 2.1 mmol/L (-2.0-2.0); BG CARBOXYHEMOGLOBIN 0.1 % (0.5-1.5); BG DEOXYHEMOGLOBIN 1.6 % (0.0-5.0); BG FRACTION INSPIRED OXYGEN 40; BG HCO3 ACT 23.9 mmol/L (22.0-26.0); BG METHEMOGLOBIN 0.2 % (0.0-1.5); BG OXYGEN SATURATION 98.4 % (92.0-98.5); BG OXYHEMOGLOBIN 98.1 % (94.0-97.0); BG PCO2 28.3 mmHg (35.0-45.0); BG PH 7.544 (7.350-7.450); BG PRESSURE SUPPORT 8; BG SAMPLE SITE RIGHT RADIAL; BG TIDAL VOLUME(mL) 500 mL; BG TOTAL HEMOGLOBIN 11.5 g/dL (12.0-18.0); BG VENT MODE VENT - SIMV; BG VENT RATE 6 set
[2017-10-06] MEDS: PHENYTOIN 100 MG/4 ML UDC NG SCH (21:21)
[2017-10-07] VITALS (32 sets, daily range): BP systolic 116–189; BP diastolic 50–85
[2017-10-07] MEDS: IPRATROPIUM/ALBUTEROL 0.5-3(2.5)MG/3ML NEB HHN SCH ×6 (00:20→20:24)
[2017-10-07] MEDS: ACETYLCYSTEINE 100MG/ML 10% VIAL 4ML INH SCH ×3 (00:21→16:10)
[2017-10-07] MEDS: METOCLOPRAMIDE 10MG/10 ML UDC NG SCH ×4 (00:25→18:34)
[2017-10-07] MEDS: INSULIN LISPRO 100 UNITS/ML SUBCUT SCH ×4 (00:25→18:00)
[2017-10-07] MEDS: MICAFUNGIN 100 MG in SODIUM CHLORIDE 0.9% 100 ML IV SCH (02:19)
[2017-10-07] MEDS: MORPHINE SULFATE 4 MG/ML CPJ (NOT FOR IM USE) IV PRN ×2 (02:43→08:40)
[2017-10-07] MEDS: DEXTROSE 5% WATER 1,000 ML IV SCH (04:35)
[2017-10-07 04:44] LABS: BASOPHILS % 0.2 % (0.0-2.0); EOSINOPHILS % 1.4 % (0.0-5.0); HEMATOCRIT. 32.9 % (36.0-48.0); LYMPHOCYTES % 9.3 % (20.0-50.0); MEAN CORPUSCULAR HEMOGLOBIN 30.2 pg (28.0-32.0); MEAN CORPUSCULAR VOLUME 90.3 fL (81.0-99.0); MONOCYTES % 5.1 % (2.0-8.0); PLATELET 97 x1000/uL (130-400); RED BLOOD CELL COUNT 3.65 mill/uL (4.2-5.4); RED CELL DISTRIBUTION WIDTH 15.4 % (11.6-14.6)
[2017-10-07 04:55] LABS: CHLORIDE 111 mEq/L (98-107)
[2017-10-07] MEDS: BLOOD SUGAR DIAGNOSTIC STRIP TEST SCH ×5 (06:00→23:57)
[2017-10-07] MEDS: HYDRALAZINE 20MG/ML VIAL IV PRN (06:25)
[2017-10-07 09:05] LABS: BG BASE EXCESS 2.5 mmol/L (-2.0-2.0); BG CARBOXYHEMOGLOBIN 0.1 % (0.5-1.5); BG DEOXYHEMOGLOBIN 2.5 % (0.0-5.0); BG FRACTION INSPIRED OXYGEN 40; BG HCO3 ACT 24.3 mmol/L (22.0-26.0); BG METHEMOGLOBIN 0.3 % (0.0-1.5); BG OXYGEN SATURATION 97.5 % (92.0-98.5); BG OXYHEMOGLOBIN 97.1 % (94.0-97.0); BG PCO2 28.6 mmHg (35.0-45.0); BG PH 7.547 (7.350-7.450); BG PO2 93.1 mmHg (75.0-100.0); BG PRESSURE SUPPORT 8; BG SAMPLE SITE RIGHT RADIAL; BG TIDAL VOLUME(mL) 500 mL; BG TOTAL HEMOGLOBIN 11.2 g/dL (12.0-18.0); BG VENT MODE VENT - SIMV; BG VENT RATE 6 set
[2017-10-07] MEDS: POTASSIUM CHLORIDE 20MEQ/PACKET GT SCH (10:20)
[2017-10-07] MEDS: LEVETIRACETAM 500MG/5ML CUP NG SCH ×2 (10:20→21:03)
[2017-10-07] MEDS: PANTOPRAZOLE SODIUM 40 MG/VIAL IV SCH (10:20)
[2017-10-07] MEDS: SILVER SULFADIAZINE 1% CREAM 25GM TOP SCH ×2 (10:21→21:03)
[2017-10-07] MEDS: NYSTATIN 100,000 UNITS/GM OINT 15GM TOP SCH ×2 (10:21→21:01)
[2017-10-07] MEDS ORDERED: VANCOMYCIN 1250MG in DEXTROSE 5% WATER 250ML IV SCH (12:00)
[2017-10-07] MEDS ORDERED: KCL 10MEQ/50ML PREMIX 50 ML IV SCH (12:00)
[2017-10-07] MEDS ORDERED: MAGNESIUM 2 G PREMIX 50 ML IV NR (13:00)
[2017-10-07] MEDS: ACETAMINOPHEN 325MG TABLET PO PRN (13:09)
[2017-10-07] MEDS: DEXT 5% WATER + KCL 20MEQ/L 1,000 ML IV SCH (13:26)
[2017-10-07 13:41] LABS: BG BASE EXCESS -0.6 mmol/L (-2.0-2.0); BG CARBOXYHEMOGLOBIN 0.3 % (0.5-1.5); BG DEOXYHEMOGLOBIN 1.6 % (0.0-5.0); BG FRACTION INSPIRED OXYGEN 40; BG HCO3 ACT 22.6 mmol/L (22.0-26.0); BG METHEMOGLOBIN 0.1 % (0.0-1.5); BG OXYGEN SATURATION 98.4 % (92.0-98.5); BG PCO2 32.4 mmHg (35.0-45.0); BG PH 7.461 (7.350-7.450); BG PRESSURE SUPPORT 8; BG SAMPLE SITE RIGHT RADIAL; BG TOTAL HEMOGLOBIN 11.9 g/dL (12.0-18.0); BG VENT MODE VENT - CPAP
[2017-10-07] MEDS ORDERED: SODIUM CHLORIDE 0.9% IV NR (14:00)
[2017-10-07] MEDS ORDERED: POTASSIUM PHOS M BASIC D BASIC IV NR (14:00)
[2017-10-07] MEDS: GABAPENTIN 100MG CAPSULE PO SCH (18:34)
[2017-10-07] MEDS: PHENYTOIN 100 MG/4 ML UDC NG SCH (21:03)
[2017-10-08] VITALS (36 sets, daily range): BP systolic 123–190; BP diastolic 54–100
[2017-10-08] MEDS: ACETYLCYSTEINE 100MG/ML 10% VIAL 4ML INH SCH ×3 (00:25→16:23)
[2017-10-08] MEDS: IPRATROPIUM/ALBUTEROL 0.5-3(2.5)MG/3ML NEB HHN SCH ×6 (00:25→20:48)
[2017-10-08] MEDS: INSULIN LISPRO 100 UNITS/ML SUBCUT SCH ×4 (00:28→18:35)
[2017-10-08] MEDS: METOCLOPRAMIDE 10MG/10 ML UDC NG SCH ×4 (00:29→18:35)
[2017-10-08] MEDS: MORPHINE SULFATE 4 MG/ML CPJ (NOT FOR IM USE) IV PRN ×4 (00:37→20:07)
[2017-10-08] MEDS: MICAFUNGIN 100 MG in SODIUM CHLORIDE 0.9% 100 ML IV SCH (01:03)
[2017-10-08] MEDS: BLOOD SUGAR DIAGNOSTIC STRIP TEST SCH ×3 (06:00→18:00)
[2017-10-08 06:54] LABS: BASOPHILS % 0.2 % (0.0-2.0); EOSINOPHILS % 2.3 % (0.0-5.0); HEMATOCRIT. 32.8 % (36.0-48.0); HEMOGLOBIN. 10.9 g/dL (12.0-16.0); MEAN CORPUSCULAR HEMOGLOBIN 29.9 pg (28.0-32.0); MEAN CORPUSCULAR VOLUME 89.8 fL (81.0-99.0); MEAN PLATELET VOLUME 10.8 fl (7.4-10.4); MONOCYTES % 5.3 % (2.0-8.0); NEUTROPHILS % 79.2 % (40.0-76.0); PLATELET 115 x1000/uL (130-400); RED BLOOD CELL COUNT 3.65 mill/uL (4.2-5.4); RED CELL DISTRIBUTION WIDTH 15.4 % (11.6-14.6)
[2017-10-08] MEDS: DEXT 5% WATER + KCL 20MEQ/L 1,000 ML IV SCH (08:41)
[2017-10-08] MEDS ORDERED: LOSARTAN POTASSIUM 25 MG TABLET PO SCH (09:00)
[2017-10-08 09:06] LABS: BG BASE EXCESS 2.9 mmol/L (-2.0-2.0); BG CARBOXYHEMOGLOBIN 0.2 % (0.5-1.5); BG DEOXYHEMOGLOBIN 1.2 % (0.0-5.0); BG FRACTION INSPIRED OXYGEN 40; BG HCO3 ACT 24.1 mmol/L (22.0-26.0); BG METHEMOGLOBIN 0.2 % (0.0-1.5); BG OXYGEN SATURATION 98.8 % (92.0-98.5); BG OXYHEMOGLOBIN 98.4 % (94.0-97.0); BG PCO2 26.8 mmHg (35.0-45.0); BG PH 7.572 (7.350-7.450); BG PO2 124.1 mmHg (75.0-100.0); BG SAMPLE SITE RIGHT RADIAL; BG TIDAL VOLUME(mL) 500 mL; BG TOTAL HEMOGLOBIN 11.6 g/dL (12.0-18.0); BG VENT MODE VENT - A/C; BG VENT RATE 10 set
[2017-10-08 09:40] LABS: CHLORIDE 107 mEq/L (98-107)
[2017-10-08 09:44] LABS: PHOSPHORUS 2.2 mg/dL (2.5-4.9)
[2017-10-08] MEDS: GABAPENTIN 100MG CAPSULE PO SCH ×2 (09:56→18:35)
[2017-10-08] MEDS: POTASSIUM CHLORIDE 20MEQ/PACKET GT SCH (09:56)
[2017-10-08] MEDS: PANTOPRAZOLE SODIUM 40 MG/VIAL IV SCH (09:56)
[2017-10-08] MEDS: LEVETIRACETAM 500MG/5ML CUP NG SCH ×2 (09:56→20:07)
[2017-10-08] MEDS: NYSTATIN 100,000 UNITS/GM OINT 15GM TOP SCH ×2 (09:58→20:08)
[2017-10-08] MEDS: SILVER SULFADIAZINE 1% CREAM 25GM TOP SCH ×2 (09:58→20:08)
[2017-10-08] MEDS ORDERED: CLONIDINE 0.1MG TABLET PO PRN (10:15)
[2017-10-08] MEDS ORDERED: HYDRALAZINE 20MG/ML VIAL IV PRN (10:15)
[2017-10-08] MEDS: POTASSIUM-SODIUM PHOSPHATE POWDER PACKET GT SCH ×2 (10:49→18:35)
[2017-10-08] MEDS ORDERED: MAGNESIUM 2 G PREMIX 50 ML IV SCH (12:00)
[2017-10-08] MEDS: VANCOMYCIN 750 MG PREMIX 150 ML IV SCH (12:23)
[2017-10-08] MEDS: PHENYTOIN 100 MG/4 ML UDC NG SCH (20:07)
[2017-10-09] VITALS (25 sets, daily range): BP systolic 109–175; BP diastolic 45–98
[2017-10-09] MEDS: BLOOD SUGAR DIAGNOSTIC STRIP TEST SCH ×4 (00:03→18:07)
[2017-10-09] MEDS: METOCLOPRAMIDE 10MG/10 ML UDC NG SCH ×4 (00:06→18:07)
[2017-10-09] MEDS: MORPHINE SULFATE 4 MG/ML CPJ (NOT FOR IM USE) IV PRN ×4 (00:19→21:03)
[2017-10-09] MEDS: DEXT 5% WATER + KCL 20MEQ/L 1,000 ML IV SCH (00:59)
[2017-10-09] MEDS: ACETYLCYSTEINE 100MG/ML 10% VIAL 4ML INH SCH ×4 (01:00→21:59)
[2017-10-09] MEDS: IPRATROPIUM/ALBUTEROL 0.5-3(2.5)MG/3ML NEB HHN SCH ×6 (01:01→20:26)
[2017-10-09] MEDS: MICAFUNGIN 100 MG in SODIUM CHLORIDE 0.9% 100 ML IV SCH (01:22)
[2017-10-09 05:50] LABS: BASOPHILS % 0.5 % (0.0-2.0); EOSINOPHILS % 1.4 % (0.0-5.0); HEMATOCRIT. 31.5 % (36.0-48.0); HEMOGLOBIN. 10.6 g/dL (12.0-16.0); LYMPHOCYTES % 11.1 % (20.0-50.0); MEAN CORPUSCULAR HEMOGLOBIN 30.2 pg (28.0-32.0); MEAN CORPUSCULAR VOLUME 89.5 fL (81.0-99.0); MEAN PLATELET VOLUME 10.6 fl (7.4-10.4); MONOCYTES % 5.2 % (2.0-8.0); NEUTROPHILS % 81.8 % (40.0-76.0); PLATELET 125 x1000/uL (130-400); RED BLOOD CELL COUNT 3.52 mill/uL (4.2-5.4); RED CELL DISTRIBUTION WIDTH 15.1 % (11.6-14.6)
[2017-10-09 05:55] LABS: CHLORIDE 107 mEq/L (98-107)
[2017-10-09 06:04] LABS: PHOSPHORUS 1.9 mg/dL (2.5-4.9)
[2017-10-09] MEDS: INSULIN LISPRO 100 UNITS/ML SUBCUT SCH ×4 (06:22→18:44)
[2017-10-09] MEDS ORDERED: BISACODYL 10MG SUPP PR PRN (08:30)
[2017-10-09] MEDS ORDERED: BISACODYL 10MG SUPP PR SCH (08:30)
[2017-10-09] MEDS: LEVETIRACETAM 500MG/5ML CUP NG SCH ×2 (09:00→20:59)
[2017-10-09] MEDS: GABAPENTIN 100MG CAPSULE PO SCH ×2 (09:00→18:07)
[2017-10-09] MEDS: SILVER SULFADIAZINE 1% CREAM 25GM TOP SCH ×2 (09:00→22:02)
[2017-10-09] MEDS: PANTOPRAZOLE SODIUM 40 MG/VIAL IV SCH (09:00)
[2017-10-09] MEDS: POTASSIUM-SODIUM PHOSPHATE POWDER PACKET GT SCH ×2 (09:00→18:06)
[2017-10-09] MEDS: POTASSIUM CHLORIDE 20MEQ/PACKET GT SCH (09:00)
[2017-10-09] MEDS: DOCUSATE SODIUM SUGAR FREE 100MG/10ML UDC NG SCH ×2 (09:00→18:07)
[2017-10-09] MEDS ORDERED: DOCUSATE SODIUM 100MG CAPSULE PO SCH (09:00)
[2017-10-09] MEDS: MAGNESIUM OXIDE 400MG TABLET GT SCH (09:00)
[2017-10-09] MEDS: NYSTATIN 100,000 UNITS/GM OINT 15GM TOP SCH ×2 (09:00→22:01)
[2017-10-09] MEDS ORDERED: POTASSIUM PHOS,M-BASIC-D-BASIC 30 MMOL in DEXT 5% WATER 500 ML IV SCH (10:00)
[2017-10-09] MEDS ORDERED: MAGNESIUM 4 G PREMIX 100 ML IV SCH (10:00)
[2017-10-09 11:08] LABS: BG BASE EXCESS 1.7 mmol/L (-2.0-2.0); BG CARBOXYHEMOGLOBIN 0.6 % (0.5-1.5); BG DEOXYHEMOGLOBIN 6.8 % (0.0-5.0); BG FRACTION INSPIRED OXYGEN 35; BG HCO3 ACT 24.8 mmol/L (22.0-26.0); BG METHEMOGLOBIN 0.2 % (0.0-1.5); BG OXYGEN SATURATION 93.1 % (92.0-98.5); BG OXYHEMOGLOBIN 92.4 % (94.0-97.0); BG PCO2 33.7 mmHg (35.0-45.0); BG PH 7.484 (7.350-7.450); BG PO2 64.2 mmHg (75.0-100.0); BG PRESSURE SUPPORT 10; BG SAMPLE SITE RIGHT RADIAL; BG TOTAL HEMOGLOBIN 11.6 g/dL (12.0-18.0); BG VENT MODE VENT - CPAP
[2017-10-09] MEDS: VANCOMYCIN 750 MG PREMIX 150 ML IV SCH (15:06)
[2017-10-09] MEDS: PHENYTOIN 100 MG/4 ML UDC NG SCH (20:58)
[2017-10-09] MEDS: LOSARTAN POTASSIUM 25 MG TABLET PO SCH (21:01)
[2017-10-09] MEDS: ACETAMINOPHEN 325MG TABLET PO PRN (21:02)
[2017-10-10] VITALS (14 sets, daily range): BP systolic 107–148; BP diastolic 50–76
[2017-10-10] MEDS: BLOOD SUGAR DIAGNOSTIC STRIP TEST SCH ×4 (00:37→17:17)
[2017-10-10] MEDS: METOCLOPRAMIDE 10MG/10 ML UDC NG SCH ×4 (00:44→17:23)
[2017-10-10] MEDS: ACETYLCYSTEINE 100MG/ML 10% VIAL 4ML INH SCH ×4 (00:51→23:53)
[2017-10-10] MEDS: IPRATROPIUM/ALBUTEROL 0.5-3(2.5)MG/3ML NEB HHN SCH ×7 (00:51→23:52)
[2017-10-10] MEDS: MICAFUNGIN 100 MG in SODIUM CHLORIDE 0.9% 100 ML IV SCH (02:25)
[2017-10-10] MEDS: INSULIN LISPRO 100 UNITS/ML SUBCUT SCH ×4 (06:00→17:25)
[2017-10-10 07:32] LABS: BASOPHILS % 0.4 % (0.0-2.0); EOSINOPHILS % 0.6 % (0.0-5.0); HEMATOCRIT. 34.7 % (36.0-48.0); HEMOGLOBIN. 11.4 g/dL (12.0-16.0); LYMPHOCYTES % 11.4 % (20.0-50.0); MEAN CORPUSCULAR HEMOGLOBIN 29.7 pg (28.0-32.0); MEAN CORPUSCULAR VOLUME 90.1 fL (81.0-99.0); MEAN PLATELET VOLUME 10.5 fl (7.4-10.4); MONOCYTES % 7.7 % (2.0-8.0); NEUTROPHILS % 79.9 % (40.0-76.0); PLATELET 149 x1000/uL (130-400); RED BLOOD CELL COUNT 3.85 mill/uL (4.2-5.4); RED CELL DISTRIBUTION WIDTH 14.8 % (11.6-14.6)
[2017-10-10 07:55] LABS: CHLORIDE 106 mEq/L (98-107)
[2017-10-10 08:00] LABS: PHOSPHORUS 2.8 mg/dL (2.5-4.9)
[2017-10-10] MEDS: DOCUSATE SODIUM SUGAR FREE 100MG/10ML UDC NG SCH ×2 (08:38→17:23)
[2017-10-10] MEDS: PANTOPRAZOLE SODIUM 40 MG/VIAL IV SCH (08:39)
[2017-10-10] MEDS: LEVETIRACETAM 500MG/5ML CUP NG SCH ×2 (08:39→21:16)
[2017-10-10] MEDS: GABAPENTIN 100MG CAPSULE PO SCH ×2 (08:39→17:23)
[2017-10-10] MEDS: LOSARTAN POTASSIUM 25 MG TABLET PO SCH ×2 (08:39→21:16)
[2017-10-10] MEDS: MAGNESIUM OXIDE 400MG TABLET GT SCH (08:39)
[2017-10-10] MEDS: POTASSIUM CHLORIDE 20MEQ/PACKET GT SCH (08:40)
[2017-10-10] MEDS: POTASSIUM-SODIUM PHOSPHATE POWDER PACKET GT SCH ×2 (08:41→17:23)
[2017-10-10] MEDS: SILVER SULFADIAZINE 1% CREAM 25GM TOP SCH ×2 (08:41→21:17)
[2017-10-10] MEDS: VANCOMYCIN 750 MG PREMIX 150 ML IV SCH (11:40)
[2017-10-10] MEDS: MORPHINE SULFATE 4 MG/ML CPJ (NOT FOR IM USE) IV PRN (12:09)
[2017-10-10] MEDS: PHENYTOIN 100 MG/4 ML UDC NG SCH (21:16)
[2017-10-10] MEDS: NYSTATIN 100,000 UNITS/GM OINT 15GM TOP SCH (21:17)
[2017-10-11] VITALS (11 sets, daily range): BP systolic 117–171; BP diastolic 53–99
[2017-10-11] MEDS: METOCLOPRAMIDE 10MG/10 ML UDC NG SCH ×4 (01:10→16:11)
[2017-10-11] MEDS: MICAFUNGIN 100 MG in SODIUM CHLORIDE 0.9% 100 ML IV SCH (01:11)
[2017-10-11] MEDS: INSULIN LISPRO 100 UNITS/ML SUBCUT SCH ×4 (01:36→18:00)
[2017-10-11] MEDS: IPRATROPIUM/ALBUTEROL 0.5-3(2.5)MG/3ML NEB HHN SCH ×5 (03:59→20:19)
[2017-10-11] MEDS: BLOOD SUGAR DIAGNOSTIC STRIP TEST SCH ×4 (05:28→18:27)
[2017-10-11 06:03] LABS: BASOPHILS % 0.4 % (0.0-2.0); EOSINOPHILS % 0.2 % (0.0-5.0); HEMATOCRIT. 32.4 % (36.0-48.0); HEMOGLOBIN. 10.8 g/dL (12.0-16.0); LYMPHOCYTES % 13.1 % (20.0-50.0); MEAN CORPUSCULAR VOLUME 89.7 fL (81.0-99.0); MEAN PLATELET VOLUME 10.4 fl (7.4-10.4); MONOCYTES % 10.7 % (2.0-8.0); NEUTROPHILS % 75.6 % (40.0-76.0); PLATELET 150 x1000/uL (130-400); RED BLOOD CELL COUNT 3.61 mill/uL (4.2-5.4); RED CELL DISTRIBUTION WIDTH 15.2 % (11.6-14.6)
[2017-10-11 07:53] LABS: CHLORIDE 104 mEq/L (98-107)
[2017-10-11 08:08] LABS: PHOSPHORUS 2.7 mg/dL (2.5-4.9)
[2017-10-11] MEDS: ACETYLCYSTEINE 100MG/ML 10% VIAL 4ML INH SCH ×2 (08:54→16:06)
[2017-10-11] MEDS: NYSTATIN 100,000 UNITS/GM OINT 15GM TOP SCH ×2 (09:00→21:47)
[2017-10-11] MEDS: PANTOPRAZOLE SODIUM 40 MG/VIAL IV SCH (09:10)
[2017-10-11] MEDS: POTASSIUM CHLORIDE 20MEQ/PACKET GT SCH (09:11)
[2017-10-11] MEDS: MAGNESIUM OXIDE 400MG TABLET GT SCH (09:15)
[2017-10-11] MEDS: LEVETIRACETAM 500MG/5ML CUP NG SCH ×2 (09:15→21:46)
[2017-10-11] MEDS: POTASSIUM-SODIUM PHOSPHATE POWDER PACKET GT SCH ×2 (09:16→16:11)
[2017-10-11] MEDS: DOCUSATE SODIUM SUGAR FREE 100MG/10ML UDC NG SCH ×2 (09:17→16:11)
[2017-10-11] MEDS: LOSARTAN POTASSIUM 25 MG TABLET PO SCH ×2 (09:17→21:44)
[2017-10-11] MEDS: GABAPENTIN 100MG CAPSULE PO SCH ×2 (09:18→16:12)
[2017-10-11] MEDS ORDERED: VANCOMYCIN 1 G PREMIX 200 ML IV SCH (10:00)
[2017-10-11] MEDS: SILVER SULFADIAZINE 1% CREAM 25GM TOP SCH ×2 (11:46→21:48)
[2017-10-11] MEDS ORDERED: MAGNESIUM 2 G PREMIX 50 ML IV NR (16:00)
[2017-10-11] MEDS: ACETAMINOPHEN 325MG TABLET PO PRN (16:01)
[2017-10-11] MEDS: PHENYTOIN 100 MG/4 ML UDC NG SCH (21:46)
[2017-10-11] MEDS: VANCOMYCIN 750 MG PREMIX 150 ML IV SCH (21:50)
[2017-10-12] VITALS (12 sets, daily range): BP systolic 130–158; BP diastolic 55–90
[2017-10-12] MEDS: IPRATROPIUM/ALBUTEROL 0.5-3(2.5)MG/3ML NEB HHN SCH ×6 (00:06→21:40)
[2017-10-12] MEDS: ACETYLCYSTEINE 100MG/ML 10% VIAL 4ML INH SCH ×3 (00:06→16:47)
[2017-10-12] MEDS: BLOOD SUGAR DIAGNOSTIC STRIP TEST SCH ×4 (00:19→17:31)
[2017-10-12] MEDS: METOCLOPRAMIDE 10MG/10 ML UDC NG SCH ×4 (00:28→17:26)
[2017-10-12] MEDS: INSULIN LISPRO 100 UNITS/ML SUBCUT SCH ×4 (00:30→17:31)
[2017-10-12] MEDS: MICAFUNGIN 100 MG in SODIUM CHLORIDE 0.9% 100 ML IV SCH (01:09)
[2017-10-12 06:28] LABS: CHLORIDE 105 mEq/L (98-107)
[2017-10-12 06:29] LABS: BASOPHILS % 0.3 % (0.0-2.0); EOSINOPHILS % 0.5 % (0.0-5.0); HEMATOCRIT. 33.2 % (36.0-48.0); LYMPHOCYTES % 9.6 % (20.0-50.0); MEAN CORPUSCULAR HEMOGLOBIN 29.9 pg (28.0-32.0); MEAN CORPUSCULAR VOLUME 90.4 fL (81.0-99.0); MEAN PLATELET VOLUME 10.3 fl (7.4-10.4); MONOCYTES % 10.1 % (2.0-8.0); NEUTROPHILS % 79.5 % (40.0-76.0); PLATELET 167 x1000/uL (130-400); RED BLOOD CELL COUNT 3.67 mill/uL (4.2-5.4)
[2017-10-12] MEDS: LOSARTAN POTASSIUM 25 MG TABLET PO SCH ×2 (08:47→21:37)
[2017-10-12] MEDS: MAGNESIUM OXIDE 400MG TABLET GT SCH (08:47)
[2017-10-12] MEDS: LEVETIRACETAM 500MG/5ML CUP NG SCH ×2 (08:47→21:37)
[2017-10-12] MEDS: DOCUSATE SODIUM SUGAR FREE 100MG/10ML UDC NG SCH ×2 (08:47→17:26)
[2017-10-12] MEDS: PANTOPRAZOLE SODIUM 40 MG/VIAL IV SCH (08:47)
[2017-10-12] MEDS: GABAPENTIN 100MG CAPSULE PO SCH ×2 (08:47→17:26)
[2017-10-12] MEDS: POTASSIUM CHLORIDE 20MEQ/PACKET GT SCH (08:48)
[2017-10-12] MEDS: NYSTATIN 100,000 UNITS/GM OINT 15GM TOP SCH ×2 (08:48→21:41)
[2017-10-12] MEDS: POTASSIUM-SODIUM PHOSPHATE POWDER PACKET GT SCH ×2 (08:48→17:25)
[2017-10-12] MEDS: SILVER SULFADIAZINE 1% CREAM 25GM TOP SCH ×2 (08:49→21:40)
[2017-10-12] MEDS: VANCOMYCIN 750 MG PREMIX 150 ML IV SCH ×2 (11:03→21:38)
[2017-10-12] MEDS ORDERED: MAGNESIUM 1 G PREMIX 100 ML IV NR (14:30)
[2017-10-12] MEDS: MORPHINE SULFATE 4 MG/ML CPJ (NOT FOR IM USE) IV PRN (18:26)
[2017-10-12] MEDS: PHENYTOIN 100 MG/4 ML UDC NG SCH (21:37)
[2017-10-13] VITALS (12 sets, daily range): BP systolic 119–180; BP diastolic 49–90
[2017-10-13] MEDS: IPRATROPIUM/ALBUTEROL 0.5-3(2.5)MG/3ML NEB HHN SCH ×6 (00:06→20:39)
[2017-10-13] MEDS: ACETYLCYSTEINE 100MG/ML 10% VIAL 4ML INH SCH ×3 (00:06→12:24)
[2017-10-13] MEDS: MORPHINE SULFATE 4 MG/ML CPJ (NOT FOR IM USE) IV PRN ×2 (00:13→22:31)
[2017-10-13] MEDS: METOCLOPRAMIDE 10MG/10 ML UDC NG SCH ×4 (00:36→17:22)
[2017-10-13] MEDS: BLOOD SUGAR DIAGNOSTIC STRIP TEST SCH ×4 (00:36→17:12)
[2017-10-13] MEDS: INSULIN LISPRO 100 UNITS/ML SUBCUT SCH ×4 (00:47→17:38)
[2017-10-13] MEDS: MICAFUNGIN 100 MG in SODIUM CHLORIDE 0.9% 100 ML IV SCH (01:03)
[2017-10-13 06:12] LABS: BASOPHILS % 0.4 % (0.0-2.0); EOSINOPHILS % 1.1 % (0.0-5.0); HEMATOCRIT. 27.9 % (36.0-48.0); HEMOGLOBIN. 9.5 g/dL (12.0-16.0); LYMPHOCYTES % 13.8 % (20.0-50.0); MEAN CORPUSCULAR VOLUME 88.5 fL (81.0-99.0); MEAN PLATELET VOLUME 10.4 fl (7.4-10.4); MONOCYTES % 8.3 % (2.0-8.0); NEUTROPHILS % 76.4 % (40.0-76.0); PLATELET 176 x1000/uL (130-400); RED BLOOD CELL COUNT 3.15 mill/uL (4.2-5.4)
[2017-10-13 07:09] LABS: CHLORIDE 109 mEq/L (98-107)
[2017-10-13 07:12] LABS: BG BASE EXCESS 3.5 mmol/L (-2.0-2.0); BG CARBOXYHEMOGLOBIN 1.1 % (0.5-1.5); BG DEOXYHEMOGLOBIN 2.5 % (0.0-5.0); BG HCO3 ACT 27.3 mmol/L (22.0-26.0); BG METHEMOGLOBIN 0.3 % (0.0-1.5); BG OXYGEN SATURATION 97.5 % (92.0-98.5); BG OXYHEMOGLOBIN 96.1 % (94.0-97.0); BG PCO2 38.7 mmHg (35.0-45.0); BG PH 7.467 (7.350-7.450); BG PO2 93.1 mmHg (75.0-100.0); BG SAMPLE SITE RIGHT RADIAL; BG TIDAL VOLUME(mL) 450 mL; BG TOTAL HEMOGLOBIN 12.8 g/dL (12.0-18.0); BG VENT MODE VENT - SIMV; BG VENT RATE 12 set
[2017-10-13] MEDS: LEVETIRACETAM 500MG/5ML CUP NG SCH ×2 (09:01→21:22)
[2017-10-13] MEDS: PANTOPRAZOLE SODIUM 40 MG/VIAL IV SCH (09:01)
[2017-10-13] MEDS: POTASSIUM-SODIUM PHOSPHATE POWDER PACKET GT SCH ×2 (09:01→17:24)
[2017-10-13] MEDS: DOCUSATE SODIUM SUGAR FREE 100MG/10ML UDC NG SCH ×2 (09:01→17:24)
[2017-10-13] MEDS: POTASSIUM CHLORIDE 20MEQ/PACKET GT SCH (09:02)
[2017-10-13] MEDS: LOSARTAN POTASSIUM 25 MG TABLET PO SCH ×2 (09:02→21:22)
[2017-10-13] MEDS: VANCOMYCIN 750 MG PREMIX 150 ML IV SCH ×2 (09:02→21:23)
[2017-10-13] MEDS: GABAPENTIN 100MG CAPSULE PO SCH ×2 (09:02→17:22)
[2017-10-13] MEDS: MAGNESIUM OXIDE 400MG TABLET GT SCH (09:02)
[2017-10-13] MEDS: SILVER SULFADIAZINE 1% CREAM 25GM TOP SCH ×2 (09:03→21:25)
[2017-10-13] MEDS: NYSTATIN 100,000 UNITS/GM OINT 15GM TOP SCH ×2 (09:03→21:26)
[2017-10-13] MEDS: PHENYTOIN 100 MG/4 ML UDC NG SCH (21:20)
[2017-10-14] VITALS (12 sets, daily range): BP systolic 121–161; BP diastolic 52–82
[2017-10-14] MEDS: ACETYLCYSTEINE 100MG/ML 10% VIAL 4ML INH SCH ×3 (00:19→15:30)
[2017-10-14] MEDS: IPRATROPIUM/ALBUTEROL 0.5-3(2.5)MG/3ML NEB HHN SCH ×6 (00:20→20:25)
[2017-10-14] MEDS: BLOOD SUGAR DIAGNOSTIC STRIP TEST SCH ×4 (00:52→17:47)
[2017-10-14] MEDS: METOCLOPRAMIDE 10MG/10 ML UDC NG SCH ×4 (00:52→17:45)
[2017-10-14] MEDS: INSULIN LISPRO 100 UNITS/ML SUBCUT SCH ×4 (00:57→17:47)
[2017-10-14] MEDS: MICAFUNGIN 100 MG in SODIUM CHLORIDE 0.9% 100 ML IV SCH (01:00)
[2017-10-14] MEDS: ACETAMINOPHEN 325MG TABLET PO PRN ×2 (04:35→17:45)
[2017-10-14 05:43] LABS: BASOPHILS % 0.4 % (0.0-2.0); EOSINOPHILS % 1.1 % (0.0-5.0); HEMATOCRIT. 28.4 % (36.0-48.0); HEMOGLOBIN. 9.6 g/dL (12.0-16.0); MEAN CORPUSCULAR VOLUME 88.8 fL (81.0-99.0); MEAN PLATELET VOLUME 10.1 fl (7.4-10.4); MONOCYTES % 8.4 % (2.0-8.0); NEUTROPHILS % 75.1 % (40.0-76.0); PLATELET 197 x1000/uL (130-400); RED CELL DISTRIBUTION WIDTH 14.8 % (11.6-14.6)
[2017-10-14 07:13] LABS: CHLORIDE 112 mEq/L (98-107)
[2017-10-14] MEDS: LOSARTAN POTASSIUM 25 MG TABLET PO SCH ×2 (09:08→21:33)
[2017-10-14] MEDS: LEVETIRACETAM 500MG/5ML CUP NG SCH ×2 (09:08→21:34)
[2017-10-14] MEDS: MAGNESIUM OXIDE 400MG TABLET GT SCH (09:08)
[2017-10-14] MEDS: GABAPENTIN 100MG CAPSULE PO SCH ×2 (09:08→17:45)
[2017-10-14] MEDS: PANTOPRAZOLE SODIUM 40 MG/VIAL IV SCH (09:08)
[2017-10-14] MEDS: DOCUSATE SODIUM SUGAR FREE 100MG/10ML UDC NG SCH ×2 (09:08→17:45)
[2017-10-14] MEDS: VANCOMYCIN 750 MG PREMIX 150 ML IV SCH ×2 (09:09→21:34)
[2017-10-14] MEDS: POTASSIUM CHLORIDE 20MEQ/PACKET GT SCH (09:09)
[2017-10-14] MEDS: POTASSIUM-SODIUM PHOSPHATE POWDER PACKET GT SCH ×2 (09:09→17:45)
[2017-10-14] MEDS: MORPHINE SULFATE 4 MG/ML CPJ (NOT FOR IM USE) IV PRN ×2 (09:13→17:46)
[2017-10-14] MEDS: NYSTATIN 100,000 UNITS/GM OINT 15GM TOP SCH ×2 (09:14→21:35)
[2017-10-14] MEDS: SILVER SULFADIAZINE 1% CREAM 25GM TOP SCH ×2 (09:14→21:35)
[2017-10-14] MEDS: PHENYTOIN 100 MG/4 ML UDC NG SCH (21:33)
[2017-10-15] VITALS (12 sets, daily range): BP systolic 98–166; BP diastolic 58–125
[2017-10-15] MEDS: IPRATROPIUM/ALBUTEROL 0.5-3(2.5)MG/3ML NEB HHN SCH ×6 (00:07→20:36)
[2017-10-15] MEDS: BLOOD SUGAR DIAGNOSTIC STRIP TEST SCH ×3 (00:41→12:00)
[2017-10-15] MEDS: METOCLOPRAMIDE 10MG/10 ML UDC NG SCH ×3 (00:41→14:21)
[2017-10-15] MEDS: MORPHINE SULFATE 4 MG/ML CPJ (NOT FOR IM USE) IV PRN ×2 (00:55→19:47)
[2017-10-15] MEDS: INSULIN LISPRO 100 UNITS/ML SUBCUT SCH ×3 (00:58→12:00)
[2017-10-15 06:48] LABS: MEAN CORPUSCULAR HEMOGLOBIN 29.6 pg (28.0-32.0); MEAN CORPUSCULAR VOLUME 88.5 fL (81.0-99.0); MEAN PLATELET VOLUME 10.1 fl (7.4-10.4); PLATELET 211 x1000/uL (130-400); RED BLOOD CELL COUNT 3.39 mill/uL (4.2-5.4); RED CELL DISTRIBUTION WIDTH 14.7 % (11.6-14.6)
[2017-10-15 07:51] LABS: CHLORIDE 109 mEq/L (98-107)
[2017-10-15] MEDS: DOCUSATE SODIUM SUGAR FREE 100MG/10ML UDC NG SCH ×2 (09:10→17:00)
[2017-10-15] MEDS: PANTOPRAZOLE SODIUM 40 MG/VIAL IV SCH (09:10)
[2017-10-15] MEDS: LEVETIRACETAM 500MG/5ML CUP NG SCH ×2 (09:10→21:41)
[2017-10-15] MEDS: LOSARTAN POTASSIUM 25 MG TABLET PO SCH ×2 (09:11→21:40)
[2017-10-15] MEDS: GABAPENTIN 100MG CAPSULE PO SCH ×2 (09:11→17:00)
[2017-10-15] MEDS: VANCOMYCIN 750 MG PREMIX 150 ML IV SCH ×2 (09:11→21:40)
[2017-10-15] MEDS: MAGNESIUM OXIDE 400MG TABLET GT SCH (09:11)
[2017-10-15] MEDS: POTASSIUM-SODIUM PHOSPHATE POWDER PACKET GT SCH ×2 (09:11→17:00)
[2017-10-15] MEDS: POTASSIUM CHLORIDE 20MEQ/PACKET GT SCH (09:11)
[2017-10-15] MEDS: SILVER SULFADIAZINE 1% CREAM 25GM TOP SCH ×2 (09:12→21:42)
[2017-10-15] MEDS: NYSTATIN 100,000 UNITS/GM OINT 15GM TOP SCH ×2 (09:13→21:42)
[2017-10-15 15:47] LABS: PLATELET ESTIMATE NORMAL
[2017-10-15] MEDS: ACETYLCYSTEINE 100MG/ML 10% VIAL 4ML INH SCH (16:26)
[2017-10-15] MEDS: PHENYTOIN 100 MG/4 ML UDC NG SCH (21:40)
[2017-10-16] VITALS (11 sets, daily range): BP systolic 125–155; BP diastolic 55–89
[2017-10-16] MEDS: IPRATROPIUM/ALBUTEROL 0.5-3(2.5)MG/3ML NEB HHN SCH ×6 (00:32→20:08)
[2017-10-16] MEDS: ACETYLCYSTEINE 100MG/ML 10% VIAL 4ML INH SCH ×3 (00:33→15:47)
[2017-10-16] MEDS: METOCLOPRAMIDE 10MG/10 ML UDC NG SCH ×3 (01:18→12:00)
[2017-10-16] MEDS: INSULIN LISPRO 100 UNITS/ML SUBCUT SCH ×4 (01:29→18:00)
[2017-10-16] MEDS: BLOOD SUGAR DIAGNOSTIC STRIP TEST SCH ×4 (05:08→18:00)
[2017-10-16 07:24] LABS: CHLORIDE 107 mEq/L (98-107)
[2017-10-16 07:35] LABS: PHOSPHORUS 2.7 mg/dL (2.5-4.9)
[2017-10-16] MEDS: MAGNESIUM OXIDE 400MG TABLET GT SCH (09:18)
[2017-10-16] MEDS: PANTOPRAZOLE SODIUM 40 MG/VIAL IV SCH (09:18)
[2017-10-16] MEDS: LEVETIRACETAM 500MG/5ML CUP NG SCH ×2 (09:18→21:44)
[2017-10-16] MEDS: VANCOMYCIN 750 MG PREMIX 150 ML IV SCH ×2 (09:19→21:44)
[2017-10-16] MEDS: POTASSIUM CHLORIDE 20MEQ/PACKET GT SCH ×2 (09:19→16:10)
[2017-10-16] MEDS: SILVER SULFADIAZINE 1% CREAM 25GM TOP SCH ×2 (09:20→21:45)
[2017-10-16] MEDS: NYSTATIN 100,000 UNITS/GM OINT 15GM TOP SCH ×2 (09:20→21:45)
[2017-10-16] MEDS: GABAPENTIN 100MG CAPSULE PO SCH ×2 (09:26→16:10)
[2017-10-16] MEDS: POTASSIUM-SODIUM PHOSPHATE POWDER PACKET GT SCH ×2 (09:26→16:12)
[2017-10-16] MEDS: LOSARTAN POTASSIUM 25 MG TABLET PO SCH ×2 (09:26→21:44)
[2017-10-16] MEDS: DOCUSATE SODIUM SUGAR FREE 100MG/10ML UDC NG SCH ×2 (09:27→16:10)
[2017-10-16] MEDS ORDERED: POTASSIUM CHLORIDE 20MEQ TABLET SR PO SCH (13:15)
[2017-10-16] MEDS ORDERED: KCL 20MEQ/100ML PREMIX 100 ML IV ONE (13:15)
[2017-10-16] MEDS ORDERED: POTASSIUM CHLORIDE INJ 20 MEQ in SODIUM CHLORIDE 0.9% 100 ML IV SCH (14:00)
[2017-10-16] MEDS: MORPHINE SULFATE 4 MG/ML CPJ (NOT FOR IM USE) IV PRN (20:12)
[2017-10-16] MEDS: PHENYTOIN 100 MG/4 ML UDC NG SCH (21:44)
[2017-10-17] VITALS (8 sets, daily range): BP systolic 106–155; BP diastolic 47–75
[2017-10-17] MEDS: BLOOD SUGAR DIAGNOSTIC STRIP TEST SCH ×3 (00:06→11:38)
[2017-10-17] MEDS: METOCLOPRAMIDE 10MG/10 ML UDC NG SCH ×3 (00:06→11:54)
[2017-10-17] MEDS: ACETYLCYSTEINE 100MG/ML 10% VIAL 4ML INH SCH ×2 (00:22→08:00)
[2017-10-17] MEDS: IPRATROPIUM/ALBUTEROL 0.5-3(2.5)MG/3ML NEB HHN SCH ×4 (00:22→12:28)
[2017-10-17] MEDS: INSULIN LISPRO 100 UNITS/ML SUBCUT SCH ×3 (00:23→11:56)
[2017-10-17] MEDS: MORPHINE SULFATE 4 MG/ML CPJ (NOT FOR IM USE) IV PRN (00:26)
[2017-10-17 06:07] LABS: BASOPHILS % 0.4 % (0.0-2.0); HEMATOCRIT. 29.6 % (36.0-48.0); HEMOGLOBIN. 9.9 g/dL (12.0-16.0); LYMPHOCYTES % 12.3 % (20.0-50.0); MEAN CORPUSCULAR HEMOGLOBIN 29.5 pg (28.0-32.0); MEAN CORPUSCULAR VOLUME 88.5 fL (81.0-99.0); MEAN PLATELET VOLUME 10.2 fl (7.4-10.4); MONOCYTES % 6.2 % (2.0-8.0); NEUTROPHILS % 80.1 % (40.0-76.0); PLATELET 215 x1000/uL (130-400); RED BLOOD CELL COUNT 3.35 mill/uL (4.2-5.4); RED CELL DISTRIBUTION WIDTH 14.8 % (11.6-14.6)
[2017-10-17 06:41] LABS: CHLORIDE 109 mEq/L (98-107)
[2017-10-17] MEDS: DOCUSATE SODIUM SUGAR FREE 100MG/10ML UDC NG SCH (08:26)
[2017-10-17] MEDS: LEVETIRACETAM 500MG/5ML CUP NG SCH (08:26)
[2017-10-17] MEDS: MAGNESIUM OXIDE 400MG TABLET GT SCH (08:26)
[2017-10-17] MEDS: PANTOPRAZOLE SODIUM 40 MG/VIAL IV SCH (08:26)
[2017-10-17] MEDS: NYSTATIN 100,000 UNITS/GM OINT 15GM TOP SCH (08:27)
[2017-10-17] MEDS: GABAPENTIN 100MG CAPSULE PO SCH (08:27)
[2017-10-17] MEDS: LOSARTAN POTASSIUM 25 MG TABLET PO SCH (08:27)
[2017-10-17] MEDS: POTASSIUM-SODIUM PHOSPHATE POWDER PACKET GT SCH (08:27)
[2017-10-17] MEDS: SILVER SULFADIAZINE 1% CREAM 25GM TOP SCH (08:27)
[2017-10-17] MEDS: VANCOMYCIN 750 MG PREMIX 150 ML IV SCH (09:57)
== END 2017-10-17 15:05 | DRG 4 ==
LOC: ER 15:15 → EDBEDREQ 17:07 → EDBEDREQTM 17:07 → EDBEDREQ 19:43 → EDBEDREQSVC 19:43 → EDBEDREQTM 19:43 → ENRESERV 20:30 → CANRESERV 20:30 → CVICU 21:22 → EDBEDREQTM 21:25 → EDBEDREQSVC 21:25 → ENRESERV 23:09 → 5EST 10-09 12:30
PROVIDERS: ADMIT Internal Medicine; ATTEND Internal Medicine
PROC: 5A1955Z Respiratory Ventilation, Greater than 96 Consecutive Hours (ICD-10-PCS; principal; 2017-09-25)
PROC: 0BH17EZ Insertion of Endotracheal Airway into Trachea, Via Natural or Artificial Opening (ICD-10-PCS; 2017-09-25)
PROC: 05H533Z Insertion of Infusion Device into Right Subclavian Vein, Percutaneous Approach (ICD-10-PCS; 2017-09-25)
PROC: B546ZZA Ultrasonography of Right Subclavian Vein, Guidance (ICD-10-PCS; 2017-09-25)
PROC: 4A00X4Z Measurement of Central Nervous Electrical Activity, External Approach (ICD-10-PCS; 2017-09-26)
PROC: 02HV33Z Insertion of Infusion Device into Superior Vena Cava, Percutaneous Approach (ICD-10-PCS; 2017-09-27)
PROC: B548ZZA Ultrasonography of Superior Vena Cava, Guidance (ICD-10-PCS; 2017-09-27)
PROC: B5181ZA Fluoroscopy of Superior Vena Cava using Low Osmolar Contrast, Guidance (ICD-10-PCS; 2017-09-27)
PROC: 5A1D70Z Performance of Urinary Filtration, Intermittent, Less than 6 Hours Per Day (ICD-10-PCS; 2017-09-27)
PROC: 5A1D70Z Performance of Urinary Filtration, Intermittent, Less than 6 Hours Per Day (ICD-10-PCS; 2017-09-28)
PROC: 0B110F4 Bypass Trachea to Cutaneous with Tracheostomy Device, Open Approach (ICD-10-PCS; 2017-10-03)
PROC: 0DH63UZ Insertion of Feeding Device into Stomach, Percutaneous Approach (ICD-10-PCS; 2017-10-03)
PROC: 30233L1 Transfusion of Nonautologous Fresh Plasma into Peripheral Vein, Percutaneous Approach (ICD-10-PCS; 2017-10-03)
PROC: 30233R1 Transfusion of Nonautologous Platelets into Peripheral Vein, Percutaneous Approach (ICD-10-PCS; 2017-10-03)
PROC: 30233K1 Transfusion of Nonautologous Frozen Plasma into Peripheral Vein, Percutaneous Approach (ICD-10-PCS; 2017-10-03)
DX: A41.9 Sepsis, unspecified organism (principal); I46.9 Cardiac arrest, cause unspecified; K72.00 Acute and subacute hepatic failure without coma; I63.9 Cerebral infarction, unspecified; E43 Unspecified severe protein-calorie malnutrition; I96 Gangrene, not elsewhere classified; N17.0 Acute kidney failure with tubular necrosis; J96.21 Acute and chronic respiratory failure with hypoxia; R65.21 Severe sepsis with septic shock; G93.1 Anoxic brain damage, not elsewhere classified; K85.90 Acute pancreatitis without necrosis or infection, unspecified; G93.49 Other encephalopathy; I50.43 Acute on chronic combined systolic (congestive) and diastolic (congestive) heart failure; N39.0 Urinary tract infection, site not specified; I13.0 Hypertensive heart and chronic kidney disease with heart failure and stage 1 through stage 4 chronic kidney disease, or unspecified chronic kidney disease; D68.59 Other primary thrombophilia; E87.0 Hyperosmolality and hypernatremia; E87.2 Acidosis; I42.9 Cardiomyopathy, unspecified; I47.2 Ventricular tachycardia; M62.82 Rhabdomyolysis; T79.A0XA Compartment syndrome, unspecified, initial encounter; E11.52 Type 2 diabetes mellitus with diabetic peripheral angiopathy with gangrene; N18.9 Chronic kidney disease, unspecified; B35.4 Tinea corporis; D64.9 Anemia, unspecified; D69.6 Thrombocytopenia, unspecified; E11.22 Type 2 diabetes mellitus with diabetic chronic kidney disease; E66.9 Obesity, unspecified; E78.00 Pure hypercholesterolemia, unspecified; E78.5 Hyperlipidemia, unspecified; E83.42 Hypomagnesemia; E87.6 Hypokalemia; F41.9 Anxiety disorder, unspecified; I34.0 Nonrheumatic mitral (valve) insufficiency; I44.7 Left bundle-branch block, unspecified; I48.0 Paroxysmal atrial fibrillation; I80.8 Phlebitis and thrombophlebitis of other sites; L30.8 Other specified dermatitis; M47.9 Spondylosis, unspecified; M48.02 Spinal stenosis, cervical region; R13.10 Dysphagia, unspecified; T42.0X5A Adverse effect of hydantoin derivatives, initial encounter; R29.6 Repeated falls; Z79.899 Other long term (current) drug therapy; Z82.49 Family history of ischemic heart disease and other diseases of the circulatory system; Z68.35 Body mass index [BMI] 35.0-35.9, adult
CPT/HCPCS: 31500; 36415; 36569; 36600; 70551; 71045; 76700; 76770; 76881; 76937; 78580; 80048; 80053; 80076; 80185; 80202; 81003; 82248; 82375; 82533; 82550; 82553; 82805; 82962; 83036; 83605; 83690; 83735; 83880; 83930; 83935; 84100; 84134; 84300; 84443; 84478; 84484; 85025; 85379; 85610; 85730; 86705; 86709; 86803; 86850; 86900; 86927; 87040; 87070; 87077; 87086; 87106; 87186; 87205; 87340; 93005; 93306; 93880; 93922; 93970; 94002; 94003; 94640; 96374; 96375; 99291; A6261; C1725; C1893; C9113; J0282; J0330; J0360; J0690; J0692; J1165; J1650; J1815; J1940; J1953; J1956; J2060; J2248; J2250; J2270; J2370; J2704; J3010; J3370; J3475; J3480; J3490; J7030; J7040; J7050; J7060; J7070; J7608; J7620; J8597; P9017; P9034; A4315